=== PATIENT | male | born 1975 | race Caucasian/White ===

== ENCOUNTER 2016-07-07 11:43 | Emergency (ER) | payer SELFPAY ==
[~2016-07-07] VITALS: Ht 182.9 cm; Wt 71.8 kg
[~2016-07-07 11:43] MED LIST: CIPR500T4 PO; DICY1TAB26 PO; HYDR-3535 PO; METR-1 PO; ZOFR4TAB3 PO
[2016-07-07 12:04] VITALS: BP 114/64; PULSE 66; RESP 16; TEMP 98.4; O2SAT 94
[2016-07-07] MEDS ORDERED: PRED20 PO (12:40)
[2016-07-07] MEDS ORDERED: BENZ100 PO (12:40)
[2016-07-07] MEDS ORDERED: VENTAER INH (12:40)
--- NOTE | 2016-07-07 12:41 | PD ---
HPI Chief Complaint: Cold / Flu Symptoms Time Seen by Provider: 12:40 Travel History International Travel<30 days: No Contact w/Intl Traveler<30days: No Traveled to known affect area: No History of Present Illness HPI 41-year-old male presents to the emergency department for evaluation of cough for 3 days. Patient states 3 days ago he developed a cough with nasal congestion and runny nose. States that he's had subjective fevers. States he has been taking [id number] Robitussin without improvement of symptoms. States that when he coughs he feels short of breath. Denies any wheezing, chest pain, lightheadedness, dizziness, nausea, vomiting. The patient does have a history of smoking cigarettes for approximately 20 years. Denies any history of pneumonia. No recent travel or sick contacts. No other complaints. PFSH Past Medical History Blood Disorders: Yes (HEP C) Cancer: No Cardiovascular Problems: No Cerebrovascular Accident: No Diminished Hearing: No Endocrine: No Gastrointestinal Disorders: No Genitourinary: No Musculoskeletal: No Neurologic: No Psychiatric: No Reproductive: No Respiratory: No Immunizations Current: Yes Tetanus Vaccination: < 5 Years Influenza Vaccination: No Past Surgical History Cardiac Surgery: No Ear Surgery: No Endocrine Surgery: No Gynecologic Surgery: No Oral Surgery: No Other Surgery: No Social History Alcohol Use: No (DENIES) Tobacco Use: Yes (1 PPD) Substance Use: Yes (INJECTS COCAINE X 10 YEARS, HX OF DILAUDID) Allergies-Medications (Allergen,Severity, Reaction): Coded Allergies: No Known Allergies (Verified , 07/07/16) Reported Meds & Prescriptions Reported Meds & Active Scripts Active Ventolin Hfa 18 GM Inh (Albuterol Sulfate) 90 Mcg/Act Aer 2 Puff INH Q4-6H PRN Tessalon Perles (Benzonatate) 100 Mg Cap 100 Mg PO TID PRN 10 Days Prednisone 20 Mg Tab 20 Mg PO BID 5 Days Review of Systems Except as stated in HPI: all other systems reviewed are Neg Physical Exam Narrative GENERAL: Well-nourished and well-developed pleasant male patient in no acute distress. SKIN: Warm and dry. HEAD: Normocephalic and atraumatic. EYES: No injection, drainage, or hyphema noted. PERRLA. EOMI. ENT: No nasal drainage noted. Oropharynx is clear and the TMs are normal with good landmarks. NECK: Supple and the trachea is midline. CARDIOVASCULAR: Regular rate and rhythm. RESPIRATORY: Breath sounds are equal bilaterally with no accessory muscle use, wheezing, rhonchi, or crackles. NEUROLOGICAL: Awake, alert, and oriented. Normal speech and gait. Cranial nerves are grossly intact. Data Data Last Documented VS Vital Signs Date Time Temp Pulse Resp B/P Pulse Ox O2 Delivery O2 Flow Rate FiO2 07/07/16 12:14 94 Room Air 07/07/16 12:04 98.4 66 16 114/64 [facility] Medical Decision Making Medical Screen Exam Complete: Yes Emergency Medical Condition: Yes Differential Diagnosis Acute bronchitis versus URI versus viral illness versus influenza Narrative Course 41-year-old male presents to the emergency department for evaluation of cough, nasal congestion of subjective fever for 3 days. Patient is afebrile, vital signs are stable. Physical examination is essentially unremarkable. The patient has acute bronchitis. This is likely viral in etiology and the duration has only been 3 days, I don't feel that he requires any antibiotic therapy at this time. We'll treat the patient with steroids, albuterol inhaler and Tessalon Perles. Discussed supportive care and when to return to the emergency department. Counseled smoking cessation. Patient verbalizes understanding and agreement with treatment plan. Diagnosis Primary Impression: Acute bronchitis Qualified Code: J20.9 - Acute bronchitis, unspecified organism Referrals: Primary Care Physician Patient Instructions: Acute Bronchitis (ED), General Instructions Additional Instructions: Stop smoking. Take medications as prescribed. Follow-up with your Primary Care Physician. Return to the ED for any acute worsening of symptoms. Med/Other Pt SpecificInfo: Prescription(s) given Scripts Albuterol 18 GM Inh (Ventolin Hfa 18 GM Inh)90 Mcg/Act Aer2 Puff INH Q4-6H PRN ( SHORTNESS OF BREATH) #1 INHALER Ref 0 Prov:Jeffrey Wiggins MD 07/07/16 Benzonatate (Tessalon Perles)100 Mg [id number] Mg PO TID PRN (COUGH) 10 Days Ref 0 Prov:Jeffrey Wiggins MD 07/07/16 Prednisone 20 Mg Tab20 Mg PO BID 5 Days Ref 0 Prov:Jeffrey Wiggins MD 07/07/16 Disposition: 01 DISCHARGE HOME Condition: Stable Karma Arreaga Jul 07, 2016 12:41
== END 2016-07-07 12:52 | disposition home or self-care (01) ==
LOC: PHEFT 11:43
DX: J20.9 Acute bronchitis, unspecified (principal); R09.81 Nasal congestion; F17.200 Nicotine dependence, unspecified, uncomplicated; Z86.19 Personal history of other infectious and parasitic diseases
CPT/HCPCS: 99283

== ENCOUNTER 2017-02-26 14:44 | Emergency (ER) | payer SELFPAY ==
[~2017-02-26] VITALS: Ht 180.3 cm; Wt 71.0 kg
[~2017-02-26 14:44] MED LIST changes: +BENZ100 PO; -CIPR500T4 PO; -DICY1TAB26 PO; -HYDR-3535 PO; -METR-1 PO; +PRED20 PO; +VENTAER INH; -ZOFR4TAB3 PO
[2017-02-26 14:48] VITALS: BP 112/61; PULSE 76; RESP 16; TEMP 98.7; O2SAT 97
[2017-02-26 15:56] LABS: AUTOMATED NEUTROPHIL # 4.8 TH/MM3 (1.8-7.7); BASOPHIL % 0.6 % (0.0-2.0); EOSINOPHIL # 0.4 TH/MM3 (0-0.4); HEMATOCRIT 35.6 % (39.0-51.0); HEMO FLAGS DIFF FINAL; LYMPH % 18.8 % (9.0-44.0); LYMPHOCYTE # 1.3 TH/MM3 (1.0-4.8); MEAN CELL VOLUME 86.4 FL (80.0-100.0); MEAN CORPUSCULAR HEMOGLOBIN 28.9 PG (27.0-34.0); MEAN CORPUSCULAR HGB CONC 33.4 % (32.0-36.0); NEUT % 68.6 % (16.0-70.0); PLATELET COUNT 258 TH/MM3 (150-450); RED BLOOD COUNT 4.12 MIL/MM3 (4.50-5.90); RED CELL DISTRIBUTION WIDTH 13.6 % (11.6-17.2)
[2017-02-26 16:07] LABS: CHLORIDE 101 MEQ/L (98-107); POTASSIUM 3.7 MEQ/L (3.5-5.1); SODIUM (NA) 133 MEQ/L (136-145)
[2017-02-26 16:11] LABS: ANION GAP 5 MEQ/L (5-15); APTT (PATIENT) 33.1 SEC (24.3-30.1); BICARBONATE 26.6 MEQ/L (21.0-32.0); BLOOD UREA NITROGEN 15 MG/DL (7-18); PROTHROMBIN TIME - PATIENT 11.3 SEC (9.8-11.6)
[2017-02-26 16:14] LABS: ALT (GPT) 28 U/L (12-78); AST (GOT) 18 U/L (15-37); GLOMERULAR FILTRATION RATE 124 ML/MIN (>89)
--- NOTE | 2017-02-26 16:15 | RADRPT ---
EXAM DATE/TIME: 02/26/2017 15:52 [facility] COMPARISON: No previous studies available for comparison. INDICATIONS : No known injury. Swelling in Rt elbow this morning. MEDICAL HISTORY : Hepatitis C. SURGICAL HISTORY : None. ENCOUNTER: Initial ACUITY: 1 day PAIN SCORE: 7/10 LOCATION: Right Elbow FINDINGS: Multiple view examination of the right elbow demonstrates soft tissue swelling without joint effusion , or fracture. The osseous structures are in normal alignment. Bony mineralization is normal. CONCLUSION: Soft tissue swelling without fracture.. Harolod Brown MD on February 26, 2017 at 16:13 Board Certified Radiologist. This report was verified electronically.
[2017-02-26 16:16] LABS: TOTAL BILIRUBIN ADULT 0.3 MG/DL (0.2-1.0)
[2017-02-26 16:17] LABS: ALKALINE PHOSPHATASE 87 U/L (45-117)
--- NOTE | 2017-02-26 16:43 | PD ---
HPI . Right elbow pain and swelling Chief Complaint: Skin Problem Time Seen by Provider: 15:25 Travel History International Travel<30 days: No Contact w/Intl Traveler<30days: No Traveled to known affect area: No History of Present Illness HPI 41-year-old male patient presents emergency department for evaluation of right elbow pain and swelling. Patient states the onset was 2 days ago. Patient denies any fever, chest pain, shortness breath, malaise, dysuria, chills or lightheadedness. Patient denies any major medical history however patient is an IV drug user. Patient states he normally uses his left arm for injection however he has used his right arm in the past. Patient has slightly limited range of motion in his right elbow mostly due to the swelling. The right elbow is mildly erythematous, moderately swollen and has increased warmth. PFSH Past Medical History Blood Disorders: Yes (HEP C) Cancer: No Cardiovascular Problems: No Cerebrovascular Accident: No Diminished Hearing: No Endocrine: No Gastrointestinal Disorders: No Genitourinary: No Musculoskeletal: No Neurologic: No Psychiatric: No Reproductive: No Respiratory: No Immunizations Current: Yes Tetanus Vaccination: < 5 Years Influenza Vaccination: No Past Surgical History Cardiac Surgery: No Ear Surgery: No Endocrine Surgery: No Gynecologic Surgery: No Oral Surgery: No Other Surgery: No Social History Alcohol Use: No Tobacco Use: Yes (1 PPD) Substance Use: Yes (IV Dilaudid) Allergies-Medications (Allergen,Severity, Reaction): Coded Allergies: No Known Allergies (Verified , 02/26/17) Reported Meds & Prescriptions Reported Meds & Active Scripts Active No Active Prescriptions or Reported Medications Review of Systems Except as stated in HPI: all other systems reviewed are Neg Musculoskeletal: Positive: Edema (right elbow), Pain (right elbow) Physical Exam Narrative GENERAL: Well-nourished, well-developed 41-year-old male patient. In no acute distress. Nontoxic-appearing. SKIN: Focused skin assessment warm/dry. Mild erythema from right proximal forearm over the elbow. HEAD: Normocephalic. Atraumatic EYES: No scleral icterus. No injection or drainage. NECK: Supple, trachea midline. No JVD or lymphadenopathy. CARDIOVASCULAR: Regular rate and rhythm without murmurs, gallops, or rubs. RESPIRATORY: Breath sounds equal bilaterally. No accessory muscle use. GASTROINTESTINAL: Abdomen soft, non-tender, nondistended. MUSCULOSKELETAL: Erythema, swelling and increased warmth from the proximal forearm over the elbow. There is no signs of an effusion. I do not suspect a joint to be involved. Slight decreased range of motion mostly due to the swelling in the right elbow. BACK: Nontender without obvious deformity. No CVA tenderness. Data Data Last Documented VS Vital Signs Date Time Temp Pulse Resp B/P (MAP) Pulse Ox O2 Delivery O2 Flow Rate FiO2 02/26/17 14:48 98.7 76 16 112/61 (78) 97 Orders Orders Complete Blood Count With Diff (02/26/17 15:32) Comprehensive Metabolic Panel (02/26/17 15:32) Prothrombin Time / Inr (Pt) (02/26/17 15:32) Act Partial Throm Time (Ptt) (02/26/17 15:32) Lactic Acid Sepsis Protocol (02/26/17 15:32) Blood Culture (02/26/17 15:32) Elbow, Complete (4 Vws) (02/26/17 15:32) Iv Access Insert/Monitor (02/26/17 15:32) Labs Laboratory Tests Test 02/26/17 15:45 White Blood Count 7.0 TH/MM3 Red Blood Count 4.12 MIL/MM3 Hemoglobin 11.9 GM/DL Hematocrit 35.6 % Mean Corpuscular Volume 86.4 FL Mean Corpuscular Hemoglobin 28.9 PG Mean Corpuscular Hemoglobin Concent 33.4 % Red Cell Distribution Width 13.6 % Platelet Count 258 TH/MM3 Mean Platelet Volume 7.6 FL Neutrophils (%) (Auto) 68.6 % Lymphocytes (%) (Auto) 18.8 % Monocytes (%) (Auto) 7.0 % Eosinophils (%) (Auto) 5.0 % Basophils (%) (Auto) 0.6 % Neutrophils # (Auto) 4.8 TH/MM3 Lymphocytes # (Auto) 1.3 TH/MM3 Monocytes # (Auto) 0.5 TH/MM3 Eosinophils # (Auto) 0.4 TH/MM3 Basophils # (Auto) 0.0 TH/MM3 CBC Comment DIFF FINAL Differential Comment Prothrombin Time 11.3 SEC Prothromb Time International Ratio 1.0 RATIO Activated Partial Thromboplast Time 33.1 SEC Blood Urea Nitrogen 15 MG/DL Creatinine 0.71 MG/DL Random Glucose 121 MG/DL Total Protein 7.0 GM/DL Albumin 3.0 GM/DL Calcium Level 8.3 MG/DL Alkaline Phosphatase 87 U/L Aspartate Amino Transf (AST/SGOT) 18 U/L Alanine Aminotransferase (ALT/SGPT) 28 U/L Total Bilirubin 0.3 MG/DL Sodium Level 133 MEQ/L Potassium Level 3.7 MEQ/L Chloride Level 101 MEQ/L Carbon Dioxide Level 26.6 MEQ/L Anion Gap 5 MEQ/L Estimat Glomerular Filtration Rate 124 ML/MIN Lactic Acid Level 1.5 mmol/L MDM Medical Decision Making Medical Screen Exam Complete: Yes Emergency Medical Condition: Yes Interpretation(s) Afebrile, no tachycardia Differential Diagnosis Differential diagnoses include but are not limited to septic arthritis, cellulitis, bursitis, abscess Narrative Course 41-year-old male patient presents emergency department for evaluation of 2 day history of right proximal forearm over the elbow erythema, swelling and pain. Patient denies any fevers, chills, malaise. She denies any chest pain, shortness breath. Patient denies any injury or trauma occurring to the right arm. Patient is an IV drug user however normally uses his left arm. He says that he has used his right arm in the past but has been a while. Due to the patient's high risk for infection from his lifestyle choices there was a complete workup with blood work to ensure no signs of infection systemically. CBC, CMP, PT/INR, lactic acid and x-ray of the right elbow ordered and pending. There was no leukocytosis noted on the CBC, the lactic acid was within normal limits. There are no signs or symptoms of systemic infection at this time. The x-ray of the right elbow shows no fracture or effusion. Based on patient's symptoms, clinical presentation, lab results, radiological results, vital sign review and physical exam it is not necessary to admit the patient to the hospital or keep the patient in the emergency department for further evaluation. Patient will be treated for nonpurulent cellulitis with Keflex and Bactrim and discharged home with instructions to return the emergency Department with any signs or symptoms of worsening infection.. Laboratory Tests Test 02/26/17 15:45 White Blood Count 7.0 TH/MM3 Red Blood Count 4.12 MIL/MM3 Hemoglobin 11.9 GM/DL Hematocrit 35.6 % Mean Corpuscular Volume 86.4 FL Mean Corpuscular Hemoglobin 28.9 PG Mean Corpuscular Hemoglobin Concent 33.4 % Red Cell Distribution Width 13.6 % Platelet Count 258 TH/MM3 Mean Platelet Volume 7.6 FL Neutrophils (%) (Auto) 68.6 % Lymphocytes (%) (Auto) 18.8 % Monocytes (%) (Auto) 7.0 % Eosinophils (%) (Auto) 5.0 % Basophils (%) (Auto) 0.6 % Neutrophils # (Auto) 4.8 TH/MM3 Lymphocytes # (Auto) 1.3 TH/MM3 Monocytes # (Auto) 0.5 TH/MM3 Eosinophils # (Auto) 0.4 TH/MM3 Basophils # (Auto) 0.0 TH/MM3 CBC Comment DIFF FINAL Differential Comment Prothrombin Time 11.3 SEC Prothromb Time International Ratio 1.0 RATIO Activated Partial Thromboplast Time 33.1 SEC Blood Urea Nitrogen 15 MG/DL Creatinine 0.71 MG/DL Random Glucose 121 MG/DL Total Protein 7.0 GM/DL Albumin 3.0 GM/DL Calcium Level 8.3 MG/DL Alkaline Phosphatase 87 U/L Aspartate Amino Transf (AST/SGOT) 18 U/L Alanine Aminotransferase (ALT/SGPT) 28 U/L Total Bilirubin 0.3 MG/DL Sodium Level 133 MEQ/L Potassium Level 3.7 MEQ/L Chloride Level 101 MEQ/L Carbon Dioxide Level 26.6 MEQ/L Anion Gap 5 MEQ/L Estimat Glomerular Filtration Rate 124 ML/MIN Lactic Acid Level 1.5 mmol/L Diagnosis Primary Impression: Cellulitis of right arm Referrals: Primary Care Physician Patient Instructions: Cellulitis (ED), General Instructions Additional Instructions: Please return to emergency department with any signs or symptoms of increasing infection such as increased redness, swelling, warmth and fevers. Follow up with your primary care provider. Discontinue any IV drug use. Take antibiotics as prescribed. Med/Other Pt SpecificInfo: Prescription(s) given Scripts Sulfamethoxazole-Trimethoprim (Bactrim DS) 800-160 Mg Tab 1 TAB PO BID for Infection for 10 Days, #20 TAB 0 Refills Prov: Elizabeth Barajas 02/26/17 Cephalexin (Cephalexin) 500 Mg Tab 500 MG PO Q6H for Infection for 10 Days, #40 TAB 0 Refills Prov: Elizabeth Barajas 10/5/17 Disposition: 01 DISCHARGE HOME Condition: Stable Elizabeth Barajas Feb 26, 2017 16:43
[2017-02-26] MEDS ORDERED: CEPH500T PO (16:47)
[2017-02-26] MEDS ORDERED: BACT800T5 PO (16:47)
== END 2017-02-26 16:59 | disposition home or self-care (01) ==
LOC: PHEFT 14:44
DX: L03.113 Cellulitis of right upper limb (principal); B19.20 Unspecified viral hepatitis C without hepatic coma
CPT/HCPCS: 73080; 80053; 83605; 85025; 85610; 85730; 87040; 99284

== ENCOUNTER 2017-03-06 14:41 | Emergency (ER) | payer SELFPAY ==
[~2017-03-06] VITALS: Ht 172.7 cm; Wt 70.0 kg
[~2017-03-06 14:41] MED LIST changes: +BACT800T5 PO; -BENZ100 PO; +CEPH500T PO; -PRED20 PO; -VENTAER INH
[2017-03-06 15:00] VITALS: BP 139/66; PULSE 108; RESP 16; TEMP 102.4; O2SAT 99
[2017-03-06] MEDS ORDERED: SODIUM CHLOR 0.9% 1000 ML INJ 1,000 ML IV ONE ×4 (15:22→20:00)
[2017-03-06] MEDS ORDERED: ACETAMINOPHEN 325 MG TAB PO ONE (15:30)
[2017-03-06] MEDS ORDERED: MIDAZOLAM HCL 2 MG/2 ML VIAL IV PUSH ONE (15:30)
[2017-03-06] MEDS ORDERED: ACETAMINOPHEN 650 MG SUPP RECTAL ONE (15:30)
[2017-03-06] MEDS ORDERED: ONDANSETRON HCL 4 MG/2 ML VIAL IV PUSH ONE (15:30)
[2017-03-06] MEDS ORDERED: SODIUM CHLORIDE 0.9% FLUSH 10 ML FLUSH IVF PRN (15:30)
[2017-03-06] MEDS ORDERED: LORazepam 2 MG/ML VIAL IV PUSH ONE (15:30)
--- NOTE | 2017-03-06 15:38 | PD ---
HPI Chief Complaint: substance abuse Time Seen by Provider: 15:22 Travel History International Travel<30 days: No Contact w/Intl Traveler<30days: No History of Present Illness HPI Patient comes in by EMS after being found in a residential driveway. The owners of the home called EMS on the patient. Patient reportedly initially to be cooperative and admitted to injecting IV cocaine to the EMS. Patient reportedly started to get agitated and combative and had to be restrained by EMS. Patient will not tell me what's drugs injected but states IV cocaine is hard to come by. Patient denies any pain anywhere. Patient is obviously under the influence of something and is unable to sit still, reports he is very thirsty, states he is becoming very agitated, and is rambling about various topics. Patient is currently not a good historian thus limiting H&P. PFSH Past Medical History Blood Disorders: Yes (HEP C) Cancer: No Cardiovascular Problems: No Cerebrovascular Accident: No Diminished Hearing: No Endocrine: No Gastrointestinal Disorders: No Genitourinary: No Musculoskeletal: No Neurologic: No Psychiatric: No Reproductive: No Respiratory: No Immunizations Current: Yes Past Surgical History Cardiac Surgery: No Ear Surgery: No Endocrine Surgery: No Gynecologic Surgery: No Oral Surgery: No Other Surgery: No Social History Alcohol Use: No Tobacco Use: Yes (1 PPD) Substance Use: Yes (IV Dilaudid) Allergies-Medications (Allergen,Severity, Reaction): Coded Allergies: No Known Allergies (Verified , 02/26/17) Reported Meds & Prescriptions Reported Meds & Active Scripts Active Bactrim DS (Sulfamethoxazole-Trimethoprim) 800-160 Mg Tab 1 Tab PO BID 10 Days Cephalexin 500 Mg Tab 500 Mg PO Q6H 10 Days Review of Systems ROS Limitations: Clinical Condition Except as stated in HPI: all other systems reviewed are Neg Physical Exam Exam Limitations: Clinical Condition Narrative GENERAL: Well-developed, well nourished, in no acute distress, and non-ill appearing. SKIN: Focused skin assessment warm and dry. HEAD: Atraumatic. Normocephalic. EYES: Pupils equal and round. EOMI. No scleral icterus. No injection or drainage. ENT: No nasal bleeding or discharge. Mucous membranes pink and moist. NECK: Trachea midline. Supple. No nuclear rigidity. CARDIOVASCULAR: Regular rate and rhythm. No murmur appreciated. RESPIRATORY: No accessory muscle use. No respiratory distress. Clear to auscultation. Breath sounds equal bilaterally. GASTROINTESTINAL: Abdomen soft, non-tender, nondistended, and no guarding. Hepatic and splenic margins not palpable. Normal bowel sounds 4. No pulsatile mass. MUSCULOSKELETAL: No obvious deformities. No clubbing. No cyanosis. No edema. Full range of motion. NEUROLOGICAL: Awake and alert. No obvious cranial nerve deficits. Motor grossly within normal limits. Rambling speech. PSYCHIATRIC: Inappropriate mood and affect. Data Data Last Documented VS Vital Signs Date Time Temp Pulse Resp B/P (MAP) Pulse Ox O2 Delivery O2 Flow Rate FiO2 03/07/17 01:25 03/07/17 01:13 98.0 03/06/17 23:00 54 19 100 Room Air Orders Orders Basic Metabolic Panel (Bmp) (03/06/17:) Complete Blood Count With Diff (03/06/17:) Iv Access Insert/Monitor (03/06/17:) Cath For Specimen (03/06/17:) Ecg Monitoring (03/06/17:) Oximetry (03/06/17:) Lorazepam Inj (Ativan Inj) (03/06/17 15:30) Ondansetron Inj (Zofran Inj) (03/06/17 15:30) Sodium Chloride 0.9% Flush (Ns Flush) (03/06/17:30) Sodium Chlor 0.9% 1000 Ml Inj (Ns 1000 M (03/06/17 15:22) Drug Screen, Random Urine (03/06/17:) Alcohol (Ethanol) (03/06/17:) Creatine Kinase (Cpk) (03/06/17 15:22) Midazolam Inj (Versed Inj) (03/06/17 15:30) Acetaminophen Supp (Tylenol Supp) (03/06/17 15:30) Sodium Chlor 0.9% 1000 Ml Inj (Ns 1000 M (03/06/17 15:30) Acetaminophen (Tylenol) (03/06/17 15:30) CKMB (03/06/17 15:45) CKMB% (03/06/17 15:45) Sodium Chlor 0.9% 1000 Ml Inj (Ns 1000 M (03/06/17 17:30) Creatine Kinase (Cpk) (03/06/17 17:55) Haloperidol Inj (Haldol Inj) (03/06/17 18:15) CKMB (03/06/17 18:10) CKMB% (03/06/17 18:10) Sodium Chlor 0.9% 1000 Ml Inj (Ns 1000 M (03/06/17 20:00) Labs Laboratory Tests Test 03/06/17 15:45 03/06/17 17:20 03/06/17 18:10 White Blood Count 9.2 TH/MM3 Red Blood Count 4.21 MIL/MM3 Hemoglobin 12.4 GM/DL Hematocrit 36.2 % Mean Corpuscular Volume 85.9 FL Mean Corpuscular Hemoglobin 29.4 PG Mean Corpuscular Hemoglobin Concent 34.2 % Red Cell Distribution Width 13.9 % Platelet Count 361 TH/MM3 Mean Platelet Volume 7.6 FL Neutrophils (%) (Auto) 78.9 % Lymphocytes (%) (Auto) 12.6 % Monocytes (%) (Auto) 6.4 % Eosinophils (%) (Auto) 1.1 % Basophils (%) (Auto) 1.0 % Neutrophils # (Auto) 7.3 TH/MM3 Lymphocytes # (Auto) 1.2 TH/MM3 Monocytes # (Auto) 0.6 TH/MM3 Eosinophils # (Auto) 0.1 TH/MM3 Basophils # (Auto) 0.1 TH/MM3 CBC Comment DIFF FINAL Differential Comment Blood Urea Nitrogen 24 MG/DL Creatinine 1.06 MG/DL Random Glucose 82 MG/DL Calcium Level 8.9 MG/DL Sodium Level 137 MEQ/L Potassium Level 4.3 MEQ/L Chloride Level 106 MEQ/L Carbon Dioxide Level 23.0 MEQ/L Anion Gap 8 MEQ/L Estimat Glomerular Filtration Rate 78 ML/MIN Total Creatine Kinase 2585 U/L 1770 U/L Creatine Kinase MB 23.3 NG/ML 15.0 NG/ML Creatine Kinase MB % 0.9 % 0.8 % Ethyl Alcohol Level LESS THAN 3 MG/DL Urine Opiates Screen POS Urine Barbiturates Screen NEG Urine Amphetamines Screen POS Urine Benzodiazepines Screen POS Urine Cocaine Screen NEG Urine Cannabinoids Screen POS MDM Medical Decision Making Medical Screen Exam Complete: Yes Emergency Medical Condition: Yes Differential Diagnosis Substance abuse, renal insufficiency, electrolyte abnormality, rhabdo, other Narrative Course Patient was seen and examined. IV was established patient was placed on cardiac monitoring. Patient was given Versed and Ativan definitive acute agitation. Patient's BNP without prior to for his elevated temperature on arrival. patient was given 2 Liters of iv fluid. after having elevated cpk on his laboratory results a repeat cpk was checked and should be downtrending. patient was given additional 2 L of iv fluid. Patient will be monitored in the emergency department until clinically sober and able to ambulate on their own or until a sober responsible adult comes to pick them up. Patient may reevaluated at that time for any acute complaints. Discussed this patient with Dr. Craig, who is in agreement with plan of care and disposition. RN is aware of this. Diagnosis Primary Impression: Polysubstance abuse Additional Impression: Elevated CPK Referrals: [facility] Patient Instructions: General Instructions, Polysubstance Abuse (ED) Additional Instructions: Follow-up with your primary care physician in 3-4 days for reevaluation. Follow up [facility] for [facility] detox. Drink plenty of non- caffeinated and nonalcoholic fluids. Stop doing drugs. Return to the emergency department if symptoms get worse or for any emergent concerns. Disposition: 01 DISCHARGE HOME Condition: Stable Anam Cesar Mar 06, 2017 15:38
[2017-03-06 16:39] LABS: ANION GAP 8 MEQ/L (5-15); BLOOD UREA NITROGEN 24 MG/DL (7-18); CHLORIDE 106 MEQ/L (98-107); GLOMERULAR FILTRATION RATE 78 ML/MIN (>89); POTASSIUM 4.3 MEQ/L (3.5-5.1); SODIUM (NA) 137 MEQ/L (136-145)
[2017-03-06 16:48] LABS: ALCOHOL LESS THAN 3 MG/DL (0-5)
[2017-03-06 16:54] LABS: CREATINE KINASE 2585 U/L (39-308)
[2017-03-06 16:55] LABS: AUTOMATED NEUTROPHIL # 7.3 TH/MM3 (1.8-7.7); BASOPHIL # 0.1 TH/MM3 (0-0.2); EOSINOPHIL # 0.1 TH/MM3 (0-0.4); EOSINOPHIL % 1.1 % (0.0-4.0); HEMATOCRIT 36.2 % (39.0-51.0); HEMO FLAGS DIFF FINAL; LYMPH % 12.6 % (9.0-44.0); LYMPHOCYTE # 1.2 TH/MM3 (1.0-4.8); MEAN CELL VOLUME 85.9 FL (80.0-100.0); MEAN CORPUSCULAR HEMOGLOBIN 29.4 PG (27.0-34.0); MEAN CORPUSCULAR HGB CONC 34.2 % (32.0-36.0); MONO % 6.4 % (0.0-8.0); NEUT % 78.9 % (16.0-70.0); PLATELET COUNT 361 TH/MM3 (150-450); RED BLOOD COUNT 4.21 MIL/MM3 (4.50-5.90); RED CELL DISTRIBUTION WIDTH 13.9 % (11.6-17.2); WHITE BLOOD COUNT 9.2 TH/MM3 (4.0-11.0)
[2017-03-06 17:10] LABS: CKMB 23.3 NG/ML (0.5-3.6)
[2017-03-06 17:15] VITALS: BP 103/59; PULSE 70; RESP 16; O2SAT 100
[2017-03-06] MEDS ORDERED: HALOPERIDOL LACTATE 5 MG/ML AMP IV PUSH ONE (18:15)
[2017-03-06 18:45] VITALS: BP 102/58; PULSE 64; RESP 16; O2SAT 100
[2017-03-06 19:37] VITALS: BP 100/55; PULSE 58; RESP 17; O2SAT 100
[2017-03-06 19:38] VITALS: RESP 16; O2SAT 100
[2017-03-06 23:00] VITALS: BP 120/71; PULSE 54; RESP 19; O2SAT 100
[2017-03-07 01:04] VITALS: TEMP 98
--- NOTE | 2017-03-07 01:08 | PD ---
Physical Exam Narrative GENERAL: Well-nourished, well-developed patient. SKIN: Warm and dry. HEAD: Normocephalic and atraumatic. EYES: No injection or drainage. ENT: No nasal drainage noted. NECK: Supple, trachea midline. CARDIOVASCULAR: Regular rate and rhythm RESPIRATORY: no increased effort. No accessory muscle use. GASTROINTESTINAL: Abdomen soft, nondistended. NEUROLOGICAL: Awake and alert. Motor and sensory grossly within normal limits. Normal speech. steady gait Data Data Last Documented VS Vital Signs Date Time Temp Pulse Resp B/P (MAP) Pulse Ox O2 Delivery O2 Flow Rate FiO2 03/07/17 01:04 98.0 03/06/17 23:00 54 19 100 Room Air Orders Orders Basic Metabolic Panel (Bmp) (03/06/17 15:22) Complete Blood Count With Diff (03/06/17:) Iv Access Insert/Monitor (03/06/17:22) Cath For Specimen (03/06/17:) Ecg Monitoring (03/06/17:) Oximetry (03/06/17:) Lorazepam Inj (Ativan Inj) (03/06/17 15:30) Ondansetron Inj (Zofran Inj) (03/06/17 15:30) Sodium Chloride 0.9% Flush (Ns Flush) (03/06/17:30) Sodium Chlor 0.9% 1000 Ml Inj (Ns 1000 M (03/06/17 15:22) Drug Screen, Random Urine (03/06/17 15:22) Alcohol (Ethanol) (03/06/17:22) Creatine Kinase (Cpk) (03/06/17 15:22) Midazolam Inj (Versed Inj) (03/06/17 15:30) Acetaminophen Supp (Tylenol Supp) (03/06/17 15:30) Sodium Chlor 0.9% 1000 Ml Inj (Ns 1000 M (03/06/17 15:30) Acetaminophen (Tylenol) (03/06/17 15:30) CKMB (03/06/17 15:45) CKMB% (03/06/17 15:45) Sodium Chlor 0.9% 1000 Ml Inj (Ns 1000 M (03/06/17 17:30) Creatine Kinase (Cpk) (03/06/17 17:55) Haloperidol Inj (Haldol Inj) (03/06/17 18:15) CKMB (03/06/17 18:10) CKMB% (03/06/17 18:10) Sodium Chlor 0.9% 1000 Ml Inj (Ns 1000 M (03/06/17 20:00) Labs Laboratory Tests Test 03/06/17 15:45 03/06/17 17:20 03/06/17 18:10 White Blood Count 9.2 TH/MM3 Red Blood Count 4.21 MIL/MM3 Hemoglobin 12.4 GM/DL Hematocrit 36.2 % Mean Corpuscular Volume 85.9 FL Mean Corpuscular Hemoglobin 29.4 PG Mean Corpuscular Hemoglobin Concent 34.2 % Red Cell Distribution Width 13.9 % Platelet Count 361 TH/MM3 Mean Platelet Volume 7.6 FL Neutrophils (%) (Auto) 78.9 % Lymphocytes (%) (Auto) 12.6 % Monocytes (%) (Auto) 6.4 % Eosinophils (%) (Auto) 1.1 % Basophils (%) (Auto) 1.0 % Neutrophils # (Auto) 7.3 TH/MM3 Lymphocytes # (Auto) 1.2 TH/MM3 Monocytes # (Auto) 0.6 TH/MM3 Eosinophils # (Auto) 0.1 TH/MM3 Basophils # (Auto) 0.1 TH/MM3 CBC Comment DIFF FINAL Differential Comment Blood Urea Nitrogen 24 MG/DL Creatinine 1.06 MG/DL Random Glucose 82 MG/DL Calcium Level 8.9 MG/DL Sodium Level 137 MEQ/L Potassium Level 4.3 MEQ/L Chloride Level 106 MEQ/L Carbon Dioxide Level 23.0 MEQ/L Anion Gap 8 MEQ/L Estimat Glomerular Filtration Rate 78 ML/MIN Total Creatine Kinase 2585 U/L 1770 U/L Creatine Kinase MB 23.3 NG/ML 15.0 NG/ML Creatine Kinase MB % 0.9 % 0.8 % Ethyl Alcohol Level LESS THAN 3 MG/DL Urine Opiates Screen POS Urine Barbiturates Screen NEG Urine Amphetamines Screen POS Urine Benzodiazepines Screen POS Urine Cocaine Screen NEG Urine Cannabinoids Screen POS MDM Supervised Visit with [facility]: Yes Interpretation(s) CBC & BMP Diagram 03/06/17 15:45 Calcium Level 8.9 Narrative Course 1305 patient now awake alert and orientated, steady gait, girlfriend at bedside , patient notes injecting multiple drugs earlier today. On review of records he had 102.4 fever, I talked with patient about how he is at risk for sepsis, endocarditis, spinal abscess and severe infection given his IV drug abuse and my recommendation is for him to stay in the hospital for further workup and testing. He states he feels fine and doesn't want to stay. Girlfriend at bedside. Nurse at bedside. AMA: The risks of leaving against medical advice without further evaluation treatment were discussed with the patient. These risks include cardiac dysfunction, cardiac dysrhythmia, possible heart attack, possible stroke or . The patient indicated understanding of these risks and appeared to have the capacity to make this decision. Diagnosis Primary Impression: Polysubstance abuse Additional Impression: Elevated CPK Referrals: [facility] Patient Instructions: General Instructions, Polysubstance Abuse (ED) Additional Instruction: Follow-up with your primary care physician thursday for reevaluation. Follow up with [facility] for [facility] detox. Drink plenty of non-caffeinated and nonalcoholic fluids. Stop doing drugs. Return to the emergency department if symptoms get worse or for any emergent concerns. Disposition: 07 AGAINST MEDICAL ADVICE Condition: Stable Jen Alvarez MD Mar 07, 2017 01:08
[2017-03-07 01:13] VITALS: TEMP 98
== END 2017-03-07 01:33 | disposition left against medical advice (07) ==
LOC: NEPC 14:41
DX: F19.10 Other psychoactive substance abuse, uncomplicated (principal); B19.20 Unspecified viral hepatitis C without hepatic coma; F17.200 Nicotine dependence, unspecified, uncomplicated; R74.8 Abnormal levels of other serum enzymes
CPT/HCPCS: 80048; 80307; 82550; 82552; 85025; 96361; 96374; 96375; 99284; J1630; J2060; J2250; J2405; J7030; P9612

== ENCOUNTER 2017-04-22 14:13 | Emergency (ER) | payer SELFPAY ==
[~2017-04-22] VITALS: Ht 182.9 cm; Wt 72.7 kg
[2017-04-22 14:14] VITALS: BP 134/64; PULSE 98; RESP 20; TEMP 100.8; O2SAT 96
--- NOTE | 2017-04-22 14:43 | PD ---
HPI Chief Complaint: Edema Time Seen by Provider: 14:43 Travel History International Travel<30 days: No Contact w/Intl Traveler<30days: No Traveled to known affect area: No History of Present Illness HPI 41-year-old male with history of IV drug abuse presents to [facility] department for evaluation of a swollen and painful anterior left hand worsening over the last 3 days. Patient states that he injected IV drugs and missed. The hand has become increasingly swollen. Denies fever or chills. Dates that he just needs antibiotics. Denies any alterations in sensation or limitations range motion. Patient has no other symptoms reported. PFSH Past Medical History Blood Disorders: Yes (HEP C) Cancer: No Cardiovascular Problems: No Cerebrovascular Accident: No Diminished Hearing: No Endocrine: No Gastrointestinal Disorders: No Genitourinary: No Musculoskeletal: No Neurologic: No Psychiatric: No Reproductive: No Respiratory: No Immunizations Current: Yes Past Surgical History Cardiac Surgery: No Ear Surgery: No Endocrine Surgery: No Gynecologic Surgery: No Oral Surgery: No Other Surgery: No Social History Alcohol Use: No Tobacco Use: Yes (1 PPD) Substance Use: Yes (IV Dilaudid) Allergies-Medications (Allergen,Severity, Reaction): Coded Allergies: No Known Allergies (Verified , 02/26/17) Reported Meds & Prescriptions Reported Meds & Active Scripts Active Bactrim DS (Sulfamethoxazole-Trimethoprim) 800-160 Mg Tab 1 Tab PO BID 10 Days Cephalexin 500 Mg Tab 500 Mg PO Q6H 10 Days Review of Systems Except as stated in HPI: all other systems reviewed are Neg Physical Exam Narrative GENERAL: Well-nourished male patient, no acute distress SKIN: Warm and dry. HEAD: Atraumatic. Normocephalic. EYES: Pupils equal and round. No scleral icterus. No injection or drainage. ENT: No nasal bleeding or discharge. Mucous membranes pink and moist. NECK: Trachea midline. No JVD. CARDIOVASCULAR: Elevated rate RESPIRATORY: No accessory muscle use. GASTROINTESTINAL: Abdomen nondistended. MUSCULOSKELETAL: . No obvious deformities. Edema of the entire left hand with induration proximal to the anterior medial left wrist. Patient can flex and extend the digits but this is limited due to edema. Cap refill within normal limits. NEUROLOGICAL: Awake and alert. No obvious cranial nerve deficits. Motor grossly within normal limits. Five out of 5 muscle strength in the arms and legs. Normal speech. Data Data Last Documented VS Vital Signs Date Time Temp Pulse Resp B/P (MAP) Pulse Ox O2 Delivery O2 Flow Rate FiO2 04/22/17 14:14 100.8 98 20 134/64 (87) 96 Room Air Orders Orders Complete Blood Count With Diff (04/22/17 14:30) Basic Metabolic Panel (Bmp) (04/22/17 14:30) Blood Culture (04/22/17 14:30) Lactic Acid Sepsis Protocol (04/22/17 14:30) MDM Medical Decision Making Medical Screen Exam Complete: Yes Emergency Medical Condition: Yes Medical Record Reviewed: Yes Differential Diagnosis Sepsis versus cellulitis versus abscess Narrative Course 41-year-old male presents to the emergency department for evaluation of a swollen left upper extremity echo. IV drug abuse. Workup was initiated in triage. Patient is tachycardic as well as febrile. Sepsis protocol was initiated. AMA: The risks of leaving against medical advice without further evaluation treatment were discussed with the patient. These risks include cardiac dysfunction, cardiac dysrhythmia, possible heart attack, possible stroke or . The patient indicated understanding of these risks and appeared to have the capacity to make this decision. Diagnosis Primary Impression: Cellulitis of right arm Disposition: 07 AGAINST MEDICAL ADVICE Condition: Stable MaxJacqueline paz SAIMA Apr 22, 2017 14:43
== END 2017-04-22 14:43 | disposition left against medical advice (07) ==
LOC: NED 14:13
DX: L03.113 Cellulitis of right upper limb (principal); R00.0 Tachycardia, unspecified; F31.9 Bipolar disorder, unspecified; F17.200 Nicotine dependence, unspecified, uncomplicated; Z86.19 Personal history of other infectious and parasitic diseases
CPT/HCPCS: 99283

== ENCOUNTER 2017-04-23 09:43 | Inpatient (IN) | payer SELFPAY ==
[~2017-04-23] VITALS: Ht 182.9 cm; Wt 69.8 kg
[2017-04-23 09:50] VITALS: BP 117/58; PULSE 78; RESP 16; TEMP 98.1; O2SAT 96
[2017-04-23 10:02] VITALS: BP 122/56; PULSE 71; RESP 18; TEMP 97.7; O2SAT 95
--- NOTE | 2017-04-23 10:37 | PD ---
HPI Chief Complaint: Skin Problem Time Seen by Provider: 10:37 Travel History International Travel<30 days: No Contact w/Intl Traveler<30days: No Traveled to known affect area: No History of Present Illness HPI 41-year-old male came to the emergency room with history of left arm swelling after her IV drug abuse. Patient says that he injects Dilaudid. Patient is afebrile and vital signs otherwise stable. However he says he's noticed that swelling since yesterday and is significantly larger than the other arm. Patient is not very forthcoming with the history. He prefers to sleep but does wake up and answer questions in monosyllables when I ask him. He looks disheveled and quite possibly homeless. [facility] Past Medical History Narrative Medical List of her past medical, surgical, social and family history is reviewed from the nursing note. Blood Disorders: Yes (HEP C) Cancer: No Cardiovascular Problems: No Cerebrovascular Accident: No Diminished Hearing: No Endocrine: No Gastrointestinal Disorders: No Genitourinary: No Hepatitis: Yes (hep C ) Musculoskeletal: No Neurologic: No Psychiatric: No Reproductive: No Respiratory: No Immunizations Current: Yes Past Surgical History Cardiac Surgery: No Ear Surgery: No Endocrine Surgery: No Gynecologic Surgery: No Oral Surgery: No Other Surgery: No Social History Alcohol Use: No Tobacco Use: Yes (1 PPD) Substance Use: Yes (IV Dilaudid, meth and marijuana ) Allergies-Medications (Allergen,Severity, Reaction): Coded Allergies: No Known Allergies (Verified Allergy, Unknown, 04/23/17) Comments No known drug allergies Reported Meds & Prescriptions Reported Meds & Active Scripts Active Bactrim DS (Sulfamethoxazole-Trimethoprim) 800-160 Mg Tab 1 Tab PO BID 10 Days Cephalexin 500 Mg Tab 500 Mg PO Q6H 10 Days Narrative Medication List of his home medications reviewed from the nursing note. Review of Systems Except as stated in HPI: all other systems reviewed are Neg Physical Exam Narrative GENERAL: Somnolent but opens his eyes and responds to commands SKIN: Focused skin assessment warm/dry. Left elbow and the forearm distally up to the fingertips is swollen, erythematous, warm to touch and a fluctuant 4 x 4 centimeter blister looking area on the ulnar aspect of the wrist HEAD: Atraumatic. Normocephalic. EYES: Pupils equal and round. No scleral icterus. No injection or drainage. ENT: No nasal bleeding or discharge. Mucous membranes pink and moist. NECK: Trachea midline. No JVD. CARDIOVASCULAR: Regular rate and rhythm. No murmur appreciated. RESPIRATORY: No accessory muscle use. Clear to auscultation. Breath sounds equal bilaterally. GASTROINTESTINAL: Abdomen soft, non-tender, nondistended. Hepatic and splenic margins not palpable. MUSCULOSKELETAL: No obvious deformities. No clubbing. No cyanosis. No edema. NEUROLOGICAL: Awake and alert. No obvious cranial nerve deficits. Motor grossly within normal limits. Normal speech. PSYCHIATRIC: Appropriate mood and affect; insight and judgment normal. Data Data Last Documented VS Vital Signs Date Time Temp Pulse Resp B/P (MAP) Pulse Ox O2 Delivery O2 Flow Rate FiO2 04/23/17 10:02 97.7 71 18 122/56 (78) 95 Room Air Orders Orders Sepsis Workup Initiated (04/23/17 10:08) Complete Blood Count With Diff (04/23/17 10:10) Comprehensive Metabolic Panel (04/23/17 10:10) Lactic Acid Sepsis Protocol (04/23/17 10:10) Blood Culture (04/23/17 10:10) Ct Forearm W Iv Contrast (04/23/17 ) Piperacil-Tazo 4.5 Gm Premix (Zosyn 4.5 (04/23/17 10:45) Vancomycin Inj (Vancomycin Inj) (04/23/17 10:45) Sodium Chlor 0.9% 1000 Ml Inj (Ns 1000 M (04/23/17 10:45) Sodium Chlor 0.9% 1000 Ml Inj (Ns 1000 M (04/23/17 10:45) Iohexol 350 Inj (Omnipaque 350 Inj) (04/23/17 11:46) Admit Order (Ed Use Only) (04/23/17 13:33) Labs Laboratory Tests Test 04/23/17 10:20 White Blood Count 7.9 TH/MM3 Red Blood Count 4.15 MIL/MM3 Hemoglobin 12.1 GM/DL Hematocrit 35.3 % Mean Corpuscular Volume 85.2 FL Mean Corpuscular Hemoglobin 29.2 PG Mean Corpuscular Hemoglobin Concent 34.3 % Red Cell Distribution Width 14.1 % Platelet Count 294 TH/MM3 Mean Platelet Volume 7.1 FL Neutrophils (%) (Auto) 81.2 % Lymphocytes (%) (Auto) 11.5 % Monocytes (%) (Auto) 5.6 % Eosinophils (%) (Auto) 1.2 % Basophils (%) (Auto) 0.5 % Neutrophils # (Auto) 6.4 TH/MM3 Lymphocytes # (Auto) 0.9 TH/MM3 Monocytes # (Auto) 0.4 TH/MM3 Eosinophils # (Auto) 0.1 TH/MM3 Basophils # (Auto) 0.0 TH/MM3 CBC Comment DIFF FINAL Differential Comment Blood Urea Nitrogen 22 MG/DL Creatinine 0.88 MG/DL Random Glucose 156 MG/DL Total Protein 8.3 GM/DL Albumin 3.4 GM/DL Calcium Level 8.9 MG/DL Alkaline Phosphatase 87 U/L Aspartate Amino Transf (AST/SGOT) 18 U/L Alanine Aminotransferase (ALT/SGPT) 23 U/L Total Bilirubin 0.7 MG/DL Sodium Level 133 MEQ/L Potassium Level 3.7 MEQ/L Chloride Level 98 MEQ/L Carbon Dioxide Level 28.4 MEQ/L Anion Gap 7 MEQ/L Estimat Glomerular Filtration Rate 96 ML/MIN Lactic Acid Level 1.3 mmol/L [facility] Medical Decision Making Medical Screen Exam Complete: Yes Emergency Medical Condition: Yes Medical Record Reviewed: Yes Differential Diagnosis Abscess, necrotizing fasciitis, cellulitis Narrative Course 1:54 PM blood test results of back and do not show sepsis. There was a CT scan of the upper extremity done which shows a fluid-filled area on the wrist area with soft tissue swelling. Patient was given IV Zosyn and vancomycin with IV fluid. I intend to admit him given the clinical severity of the infection. Awaiting for the hospitalist to call back. Procedures EKG Prior to Arrival: No Diagnosis Primary Impression: IV drug abuse Additional Impression: Cellulitis of forearm, left Admitting Information Admitting Physician Requests: it Raheem Guevara MD Apr 23, 2017 10:37
[2017-04-23] MEDS ORDERED: SODIUM CHLOR 0.9% 1000 ML INJ 1,000 ML IV ONE ×2 (10:45)
[2017-04-23] MEDS ORDERED: PIPERACIL-TAZO 4.5 GM PREMIX 100 ML IV ONE (10:45)
[2017-04-23] MEDS ORDERED: VANCOMYCIN INJ 1,000 MG in SODIUM CHLOR 0.9% 250 ML INJ 250 ML IV ONE (10:45)
[2017-04-23 10:54] LABS: AUTOMATED NEUTROPHIL # 6.4 TH/MM3 (1.8-7.7); BASOPHIL % 0.5 % (0.0-2.0); EOSINOPHIL # 0.1 TH/MM3 (0-0.4); EOSINOPHIL % 1.2 % (0.0-4.0); HEMATOCRIT 35.3 % (39.0-51.0); HEMO FLAGS DIFF FINAL; LYMPH % 11.5 % (9.0-44.0); LYMPHOCYTE # 0.9 TH/MM3 (1.0-4.8); MEAN CELL VOLUME 85.2 FL (80.0-100.0); MEAN CORPUSCULAR HEMOGLOBIN 29.2 PG (27.0-34.0); MEAN CORPUSCULAR HGB CONC 34.3 % (32.0-36.0); MONO % 5.6 % (0.0-8.0); NEUT % 81.2 % (16.0-70.0); PLATELET COUNT 294 TH/MM3 (150-450); RED BLOOD COUNT 4.15 MIL/MM3 (4.50-5.90); RED CELL DISTRIBUTION WIDTH 14.1 % (11.6-17.2); WHITE BLOOD COUNT 7.9 TH/MM3 (4.0-11.0)
[2017-04-23 11:18] LABS: ALT (GPT) 23 U/L (12-78); ANION GAP 7 MEQ/L (5-15); AST (GOT) 18 U/L (15-37); BICARBONATE 28.4 MEQ/L (21.0-32.0); BLOOD UREA NITROGEN 22 MG/DL (7-18); CHLORIDE 98 MEQ/L (98-107); GLOMERULAR FILTRATION RATE 96 ML/MIN (>89); POTASSIUM 3.7 MEQ/L (3.5-5.1); SODIUM (NA) 133 MEQ/L (136-145)
[2017-04-23 11:21] LABS: ALKALINE PHOSPHATASE 87 U/L (45-117); TOTAL BILIRUBIN ADULT 0.7 MG/DL (0.2-1.0)
[2017-04-23] MEDS ORDERED: IOHEXOL 350 MG/ML 10 ML VIAL (for RAD DIAG) IVCONTRAST ONE (11:46)
--- NOTE | 2017-04-23 13:08 | RADRPT ---
EXAM DATE/TIME: 04/23/2017 11:38 [place] COMPARISON: No previous studies available for comparison. INDICATIONS : Left lateral wrist, forearm redness and swelling for 4 days IV CONTRAST: 72 cc Omnipaque 350 (iohexol) IV RADIATION DOSE: 13.48 CTDIvol (mGy) MEDICAL HISTORY : None SURGICAL HISTORY : None. ENCOUNTER: Initial ACUITY: 4 - 6 days PAIN SCALE: 7/10 LOCATION: Left wrist TECHNIQUE: Volumetric scanning of the forearm was performed. Using automated exposure control and adjustment of the mA and/or kV according to patient size, radiation dose was kept as low as reasonably achievable to obtain optimal diagnostic quality images. DICOM format image data is available electronically fo r review and comparison. FINDINGS: Involving the superficial subcutaneous tissues of the dorsum of the carpus there is a collection ehsan uring 2.9 x 2.1 x 1.5 cm. Hounsfield units are 40. No air. There is subcutaneous edema seen involving the carpus. No cortical destruction or cortical lucency. No fracture or dislocation. CONCLUSION: There is a collection involving the dorsal soft tissues of the carpus that is felt to relate to a phl egmon that has yet to liquefy into an abscess. Adrián Boles Jr., MD on April 23, 2017 at 13:02 Board Certified Radiologist. This report was verified electronically.
[2017-04-23 14:00] VITALS: BP 132/72; PULSE 75; RESP 16; O2SAT 98
--- NOTE | 2017-04-23 14:36 | HHI.HP ---
HPI Service [facility] Primary Care Physician No Primary Care Physician Admission Diagnosis Skin problem IV drug abuse Diagnoses: Chief Complaint: Skin problem IV drug abuse Travel History International Travel<30 Days: No Contact w/Intl Traveler <30 Da: No Traveled to Known Affected Are: No History of Present Illness Patient is a 41-year-old male comes emergency department complaining of left arm swelling after using IV Dilaudid drug abuse in his left wrist. Patient states that he injects Dilaudid. Patient has noticed the swelling since yesterday and significantly larger left hand than the right side. Patient states that he's been doing IV drugs for about 20 years Has a history of hepatitis C States he used an old set up to shoot up with Review of Systems Constitutional: DENIES: Diaphoretic episodes, Fatigue, Fever, Weight gain, Weight loss, Chills, Dizziness, Change in appetite Endocrine: DENIES: Heat/cold intolerance, Polydipsia Eyes: DENIES: Blurred vision, Diplopia, Eye inflammation, Eye pain, Vision loss Ears, nose, mouth, throat: DENIES: Tinnitus, Hearing loss, Vertigo Respiratory: DENIES: Apneas, Cough, Snoring, Wheezing Cardiovascular: DENIES: Chest pain, Palpitations, Syncope, Dyspnea on Exertion Gastrointestinal: DENIES: Abdominal pain, Black stools, Bloody stools, Constipation Musculoskeletal: DENIES: Joint pain, Muscle aches, Stiffness, Joint Swelling Integumentary: COMPLAINS OF: Abnormal pigmentation (left wrist cellulitis and probable impending abscess) Hematologic/lymphatic: DENIES: Bruising, Lymphadenopathy Immunologic/allergic: DENIES: Eczema, Urticaria Neurologic: DENIES: Headache, Localized weakness, Paresthesias Psychiatric: COMPLAINS OF: Anxiety, Agitation, DENIES: Confusion, Mood changes , Depression Except as stated in HPI: all other systems reviewed are Neg Past Family Social History Past Medical History Hepatitis C IV drug abuse Tobacco abuse Past Surgical History Previous abscess issues Reported Medications Reported Meds & Active Scripts Active Bactrim DS (Sulfamethoxazole-Trimethoprim) 800-160 Mg Tab 1 Tab PO BID 10 Days Cephalexin 500 Mg Tab 500 Mg PO Q6H 10 Days Allergies: Coded Allergies: No Known Allergies (Verified Allergy, Unknown, 04/23/17) Active Ordered Medications Current Medications Piperacillin Sod/ Tazobactam Sod 100 ml @ 200 mls/hr ONCE ONCE IV Last administered on 04/23/17 12:28; Start 04/23/17 at 10:45; Stop 04/23/17 at 11 :14; Status DC Vancomycin HCl 1000 mg/Sodium Chloride 250 ml @ 250 mls/hr ONCE ONCE IV Last administered on 04/23/17 10:56; Start 04/23/17 at 10:45; Stop 04/23/17 at 11 :44; Status DC Sodium Chloride 1,000 ml @ 999 mls/hr BOLUS ONCE IV Last administered on 10:55; Start 04/23/17 at 10:45; Stop 04/23/17 at 11:45; Status DC Sodium Chloride 1,000 ml @ 999 mls/hr BOLUS ONCE IV Last administered on 10:55; Start 04/23/17 at 10:45; Stop 04/23/17 at 11:45; Status DC Iohexol (Omnipaque 350 Inj) 72 ml STK-MED ONCE IVCONTRAST Last administered on 04/23/17 11:46; Start 04/23/17 at 11:46; Stop 04/23/17 at 11:47; Status DC Family History Noncontributory at this time Social History Denies alcohol Smokes a pack of cigarettes a day Shoots IV Dilaudid IV methamphetamine and smokes marijuana Physical Exam Vital Signs Vital Signs Date Time Temp Pulse Resp B/P (MAP) Pulse Ox O2 Delivery O2 Flow Rate FiO2 04/23/17 14:00 75 16 132/72 (92) 98 Room Air 04/23/17 10:02 97.7 71 18 122/56 (78) 95 Room Air 04/23/17 09:50 98.1 78 16 117/58 (77) 96 Physical Exam GENERAL: This is a well-nourished, well-developed patient, in no apparent distress. SKIN: Left wrist with swelling and erythema and tenderness and warmth and area that probably be an abscess in the next day or so left elbow and forearm distally up to the fingertips swollen erythematous warm to touch and fluctuant 4 x 4 centimeter blister looking area on the ulnar aspect of the wrist HEAD: Atraumatic. Normocephalic. No temporal or scalp tenderness. EYES: Pupils equal round and reactive. Extraocular motions intact. No scleral icterus. No injection or drainage. ENT: Nose without bleeding, purulent drainage or septal hematoma. Throat without erythema, tonsillar hypertrophy or exudate. Uvula midline. Airway patent. NECK: Trachea midline. No JVD or lymphadenopathy. Supple, nontender, no meningeal signs. Tongue is midline CARDIOVASCULAR: Regular rate and rhythm without murmurs, gallops, or rubs. S1 and S2 no S3 or S4 RESPIRATORY: Clear to auscultation. Breath sounds equal bilaterally. No wheezes , rales, or rhonchi. GASTROINTESTINAL: Abdomen soft, non-tender, nondistended. No hepato-splenomegaly , or palpable masses. No guarding. MUSCULOSKELETAL: Extremities without clubbing, cyanosis, or edema. No joint tenderness, effusion, or edema noted. No calf tenderness. Negative Homans sign bilaterally. Swelling and erythema and tenderness left wrist area NEUROLOGICAL: Awake and alert. Cranial nerves II through XII intact. Motor and sensory grossly within normal limits. Five out of 5 muscle strength in all muscle groups. Normal speech. Insight and judgment is limited Mood and behaviors appropriate Laboratory Laboratory Tests Test 04/23/17 10:20 White Blood Count 7.9 Red Blood Count 4.15 Hemoglobin 12.1 Hematocrit 35.3 Mean Corpuscular Volume 85.2 Mean Corpuscular Hemoglobin 29.2 Mean Corpuscular Hemoglobin Concent 34.3 Red Cell Distribution Width 14.1 Platelet Count 294 Mean Platelet Volume 7.1 Neutrophils (%) (Auto) 81.2 Lymphocytes (%) (Auto) 11.5 Monocytes (%) (Auto) 5.6 Eosinophils (%) (Auto) 1.2 Basophils (%) (Auto) 0.5 Neutrophils # (Auto) 6.4 Lymphocytes # (Auto) 0.9 Monocytes # (Auto) 0.4 Eosinophils # (Auto) 0.1 Basophils # (Auto) 0.0 CBC Comment DIFF FINAL Differential Comment Blood Urea Nitrogen 22 Creatinine 0.88 Random Glucose 156 Total Protein 8.3 Albumin 3.4 Calcium Level 8.9 Alkaline Phosphatase 87 Aspartate Amino Transf (AST/SGOT) 18 Alanine Aminotransferase (ALT/SGPT) 23 Total Bilirubin 0.7 Sodium Level 133 Potassium Level 3.7 Chloride Level 98 Carbon Dioxide Level 28.4 Anion Gap 7 Estimat Glomerular Filtration Rate 96 Lactic Acid Level 1.3 Date/Time Source Procedure Growth Status 04/23/17 10:25 Blood Peripheral Aerobic Blood Culture Pending Received 04/23/17 10:25 Blood Peripheral Anaerobic Blood Culture Pending Received Result Diagram: 04/23/17 1020 04/23/17 1020 Imaging Last Impressions Upper Extremity CT 04/23/17 0000 Signed Impressions: Service Date/Time: March 11:38 - CONCLUSION: There is a collection involving the dorsal soft tissues of the carpus that is felt to relate to a phlegmon that has yet to liquefy into an abscess. MD Tr Cheney Jr. VTE Risk Assessment Caprinaleksey VTE Risk Assessment: Mod/High Risk (score >= 2) Caprini Risk Assessment Model Point Value = 1 Point Value = 2 Point Value = 3 Point Value = 5 Age 41-60 Minor surgery BMI > 25 kg/m2 Swollen legs Varicose veins or History of unexplained or recurrent spontaneous Oral contraceptives or hormone replacement Sepsis (< 1 month) Serious lung disease, including pneumonia (< 1 month) Abnormal pulmonary function Acute myocardial infarction Congestive heart failure (< 1 month) History of inflammatory bowel disease Medical patient at bed rest Age 61-74 Arthroscopic surgery Major open surgery (> 45 min) Laparoscopic surgery (> 45 min) Malignancy Confined to bed (> 72 hours) Immobilizing plaster cast Central venous access Age >= 75 History of VTE Family history of VTE Factor V Leiden Prothrombin [id number] Lupus anticoagulant Anticardiolipin antibodies Elevated serum homocysteine Heparin-induced thrombocytopenia Other congenital or acquired thrombophilia Stroke (< 1 month) Elective arthroplasty Hip, pelvis, or leg fracture Acute spinal cord injury (< 1 month) Prophylaxis Regimen Total Risk Factor Score Risk Level Prophylaxis Regimen 0-1 Low Early ambulation 2 Moderate Order ONE of the following: *Sequential Compression Device (SCD) *Heparin 5000 units SQ BID 3-4 Higher Order ONE of the following medications: *Heparin 5000 units SQ TID *Enoxaparin/Lovenox 40 mg SQ daily (WT < 150 kg, CrCl > 30 mL/min) *Enoxaparin/Lovenox 30 mg SQ daily (WT < 150 kg, CrCl > 10-29 mL/min) *Enoxaparin/Lovenox 30 mg SQ BID (WT < 150 kg, CrCl > 30 mL/min) AND/OR *Sequential Compression Device (SCD) 5 or more Highest Order ONE of the following medications: *Heparin 5000 units SQ TID (Preferred with Epidurals) *Enoxaparin/Lovenox 40 mg SQ daily (WT < 150 kg, CrCl > 30 mL/min) *Enoxaparin/Lovenox 30 mg SQ daily (WT < 150 kg, CrCl > 10-29 mL/min) *Enoxaparin/Lovenox 30 mg SQ BID (WT < 150 kg, CrCl > 30 mL/min) AND *Sequential Compression Device (SCD) Assessment and Plan Assessment and Plan Left wrist and forearm cellulitis impending abscess Continue on vancomycin and Zosyn Hepatitis C chronic IV drug abuse continues to shoot up IV Dilaudid and IV methamphetamine Tobacco abuse recommend cessation NicoDerm patch Patient at risk for IV drug abuse here in the hospital Code Status Full code Discussed Condition With RN, patient, and ER physician Physician Certification 2 Midnight Certification Type: Admission for Inpatient Services Order for Inpatient Services The services are ordered in accordance with Medicare regulations or non- Medicare payer requirements, as applicable. In the case of services not specified as inpatient-only, they are appropriately provided as inpatient services in accordance with the 2-midnight benchmark. Estimated LOS (days): 3 days is the estimated time the patient will need to remain in the hospital, assuming treatment plan goals are met and no additional complications. Post-Hospital Plan: Not yet determined Mychal Segundo DO Apr 23, 2017 14:36
[2017-04-23] MEDS ORDERED: cloNIDine HCL 0.1 MG TAB PO PRN (14:45)
[2017-04-23] MEDS ORDERED: SODIUM CHLORIDE 0.9% FLUSH 10 ML FLUSH IV FLUSH PRN (14:45)
[2017-04-23] MEDS ORDERED: ONDANSETRON HCL 4 MG/2 ML VIAL IVP PRN (14:45)
[2017-04-23] MEDS ORDERED: ACETAMINOPHEN 325 MG TAB PO PRN ×2 (14:45)
[2017-04-23] MEDS ORDERED: NALOXONE HCL 0.4 MG/ML AMP IV PUSH PRN (14:45)
[2017-04-23] MEDS ORDERED: PROCHLORPERAZINE 25 MG SUPP RECTAL PRN (14:45)
[2017-04-23] MEDS ORDERED: Vancomycin Consult Pharmacy 1 EA OTHER SCH (14:45)
[2017-04-23] MEDS ORDERED: BISACODYL 10 MG SUPP RECTAL PRN (14:45)
[2017-04-23] MEDS ORDERED: LACTULOSE SYRUP 20 GM/30 ML CUP PO PRN (14:45)
[2017-04-23] MEDS ORDERED: HYDROmorphone HCL PF 1 MG/ML VIAL IV PUSH PRN ×2 (14:45)
[2017-04-23] MEDS ORDERED: MAGNESIUM HYDROXIDE SUSP 30 ML CUP PO PRN (14:45)
[2017-04-23] MEDS ORDERED: SENNOSIDES 8.6 MG TAB PO PRN (14:45)
[2017-04-23] MEDS ORDERED: HYDROmorphone HCL 2 MG TAB PO PRN (14:45)
[2017-04-23] MEDS ORDERED: PILL SPLITTER OTHER PRN (15:30)
[2017-04-23] MEDS: SODIUM CHLOR 0.9% 1000 ML INJ 1,000 ML IV SCH (15:51)
[2017-04-23] MEDS: PIPERACIL-TAZO 4.5 GM PREMIX 100 ML IV SCH ×2 (15:51→22:20)
[2017-04-23] MEDS: NICOTINE 14 MG/24 HR PATCH T-DERMAL SCH (15:51)
[2017-04-23 16:41] VITALS: BP 132/75; PULSE 75; RESP 16; O2SAT 100
[2017-04-23 17:09] VITALS: BP 112/58; PULSE 67; RESP 18; TEMP 98.5; O2SAT 96
[2017-04-23 20:00] VITALS: BP 106/57; PULSE 80; RESP 20; TEMP 98.7; O2SAT 95
[2017-04-23] MEDS: FAMOTIDINE 20 MG TAB PO SCH (20:13)
[2017-04-23] MEDS: HYDROmorphone HCL 2 MG TAB PO PRN (20:13)
[2017-04-23] MEDS: DOCUSATE SODIUM 50 MG/SENNA 8.6 MG TAB PO SCH (20:14)
[2017-04-23] MEDS: SODIUM CHLORIDE 0.9% FLUSH 10 ML FLUSH IV FLUSH SCH (20:15)
[2017-04-23] MEDS: VANCOMYCIN INJ 1,500 MG in SODIUM CHLORID 0.9% 500 ML INJ 500 ML IV SCH (20:22)
[2017-04-24] VITALS: BP 105/56; PULSE 69; RESP 22; TEMP 98.3; O2SAT 94
[2017-04-24] MEDS: HYDROmorphone HCL 2 MG TAB PO PRN ×3 (00:52→08:51)
[2017-04-24 04:00] VITALS: BP 100/58; PULSE 74; RESP 20; TEMP 98.8; O2SAT 95
[2017-04-24] MEDS: PIPERACIL-TAZO 4.5 GM PREMIX 100 ML IV SCH (04:51)
[2017-04-24] MEDS: SODIUM CHLOR 0.9% 1000 ML INJ 1,000 ML IV SCH ×2 (04:52→11:05)
[2017-04-24 08:00] VITALS: BP 122/62; PULSE 66; RESP 18; TEMP 97.7; O2SAT 97
[2017-04-24] MEDS: VANCOMYCIN INJ 1,500 MG in SODIUM CHLORID 0.9% 500 ML INJ 500 ML IV SCH (08:43)
[2017-04-24] MEDS: NICOTINE 14 MG/24 HR PATCH T-DERMAL SCH (08:43)
[2017-04-24] MEDS: DOCUSATE SODIUM 50 MG/SENNA 8.6 MG TAB PO SCH (08:43)
[2017-04-24] MEDS: SODIUM CHLORIDE 0.9% FLUSH 10 ML FLUSH IV FLUSH SCH (08:43)
[2017-04-24] MEDS: FAMOTIDINE 20 MG TAB PO SCH (08:43)
[2017-04-24 08:51] LABS: AUTOMATED NEUTROPHIL # 5.2 TH/MM3 (1.8-7.7); BASOPHIL % 0.4 % (0.0-2.0); EOSINOPHIL # 0.1 TH/MM3 (0-0.4); EOSINOPHIL % 1.5 % (0.0-4.0); HEMO FLAGS DIFF FINAL; LYMPH % 18.1 % (9.0-44.0); LYMPHOCYTE # 1.3 TH/MM3 (1.0-4.8); MEAN CELL VOLUME 85.4 FL (80.0-100.0); MEAN CORPUSCULAR HEMOGLOBIN 29.1 PG (27.0-34.0); PLATELET COUNT 270 TH/MM3 (150-450); RED BLOOD COUNT 3.87 MIL/MM3 (4.50-5.90); RED CELL DISTRIBUTION WIDTH 14.3 % (11.6-17.2); WHITE BLOOD COUNT 7.2 TH/MM3 (4.0-11.0)
[2017-04-24] MEDS ORDERED: REMOVE OLD PATCH T-DERMAL SCH (09:00)
--- NOTE | 2017-04-24 09:03 | HHI.PR ---
Subjective Remarks Left AMA Objective Vitals Vital Signs Date Time Temp Pulse Resp B/P (MAP) Pulse Ox O2 Delivery O2 Flow Rate FiO2 04/24/17 04:00 98.8 74 20 100/58 (72) 95 04/24/17 00:00 98.3 69 22 105/56 (72) 94 04/23/17 20:00 98.7 80 20 106/57 (73) 95 04/23/17 19:45 Room Air 04/23/17 17:09 98.5 67 18 112/58 (76) 96 04/23/17 16:41 75 16 132/75 (94) 100 Room Air 04/23/17 14:00 75 16 132/72 (92) 98 Room Air 04/23/17 10:02 97.7 71 18 122/56 (78) 95 Room Air 04/23/17 09:50 98.1 78 16 117/58 (77) 96 I/O 04/23/17 04/23/17 04/23/17 04/24/17 04/24/17 04/24/17 06:59 14:59 22:59 06:59 14:59 22:59 Intake Total 2250 ml 850 ml 1628 ml Balance 2250 ml 850 ml 1628 ml Intake Oral 400 ml IV Total 2250 ml 850 ml 1228 ml # Voids 3 # Bowel Movements 1 Result Diagram: 04/24/17 0808 04/23/17 1020 Imaging Last Impressions Upper Extremity CT 04/23/17 0000 Signed Impressions: Service Date/Time: March 11:38 - CONCLUSION: There is a collection involving the dorsal soft tissues of the carpus that is felt to relate to a phlegmon that has yet to liquefy into an abscess. Adrián Boles Jr., MD Objective Remarks left AMA A/P Assessment and Plan Left wrist and forearm cellulitis impending abscess Continue on vancomycin and Zosyn Hepatitis C chronic IV drug abuse continues to shoot up IV Dilaudid and IV methamphetamine. Tobacco abuse recommend cessation, counselled. NicoDerm patch. Patient at risk for IV drug abuse here in the hospital Code Status Full code Discussed Condition With Patient, nurse Discharge Planning Patient left Nevin Munoz MD Apr 24, 2017 09:03
[2017-04-24 09:15] LABS: ALKALINE PHOSPHATASE 71 U/L (45-117); ALT (GPT) 22 U/L (12-78); ANION GAP 6 MEQ/L (5-15); AST (GOT) 12 U/L (15-37); BICARBONATE 24.5 MEQ/L (21.0-32.0); BLOOD UREA NITROGEN 7 MG/DL (7-18); CHLORIDE 107 MEQ/L (98-107); FREE T4 1.01 NG/DL (0.76-1.46); GLOMERULAR FILTRATION RATE 112 ML/MIN (>89); MAGNESIUM 2.3 MG/DL (1.5-2.5); SODIUM (NA) 137 MEQ/L (136-145); TOTAL BILIRUBIN ADULT 0.4 MG/DL (0.2-1.0)
[2017-04-24 12:21] LABS: HEMOGLOBIN A1a 1.7 %; HEMOGLOBIN A1b 1.6 %; HEMOGLOBIN Ao 84.9 %; HEMOGLOBIN LA1C 2.1 %; HEMOGLOBIN P3 3.7 %
[2017-04-25] MEDS ORDERED: PHARMACY ORDERED LAB ONE (08:45)
== END 2017-04-24 11:40 | disposition left against medical advice (07) | DRG 603 ==
LOC: NEPE 09:43 → NEDA 13:37 → N04B 17:04
PROVIDERS: ADMIT Hospitalist; ATTEND Hospitalist
DX: L03.114 Cellulitis of left upper limb (principal); F11.10 Opioid abuse, uncomplicated; F19.10 Other psychoactive substance abuse, uncomplicated; F17.210 Nicotine dependence, cigarettes, uncomplicated; B19.20 Unspecified viral hepatitis C without hepatic coma
CPT/HCPCS: 73201; 80053; 83036; 83605; 83735; 84100; 84439; 84443; 85025; 87040; 96374; 96375; J2543; J3370; J7030; J7040; J7050; Q9967

== ENCOUNTER 2017-05-28 18:20 | Inpatient (IN) | payer SELFPAY ==
[~2017-05-28] VITALS: Ht 182.9 cm; Wt 74.5 kg
[~2017-05-28 18:20] MED LIST changes: +DEXAMETHASONE SOD PHOS 4 MG/ML VIAL IV ONE; +GLYCOPYRROLATE 1 MG/5 ML SYRINGE IV PUSH ONE; +LACTATED RINGER'S 1000 ML INJ 1,000 ML IV ONE; +LIDOCAINE HCL 1% PF 5 ML SYRINGE OTHER ONE; +ONDANSETRON HCL 4 MG/2 ML VIAL IV PUSH ONE; +PHENYLEPH/NS 1000 MCG/10 ML SYR IV ONE; +PROPOFOL 200 MG/20 ML AMP IV ONE; +ePHEDrine/NS 25 MG/5 ML SYRINGE IV ONE
[2017-05-28 18:30] VITALS: BP 130/86; PULSE 72; RESP 18; TEMP 97.9; O2SAT 100
[2017-05-28] MEDS ORDERED: TETANUS/DIPHTHERIA TOXOID ADULT 0.5 ML VIAL IM ONE (18:30)
[2017-05-28] MEDS ORDERED: ceFAZolin 2 GM PREMIX 50 ML IV ONE (18:30)
--- NOTE | 2017-05-28 18:31 | PD ---
HPI Chief Complaint: Injury Time Seen by Provider: 18:28 Travel History International Travel<30 days: No Contact w/Intl Traveler<30days: No Traveled to known affect area: No History of Present Illness HPI [id number] male presents for evaluation of finger amputation. Prior to arrival the patient was on a tree removing a tree branch. He reports that when the tree branch broke the rope that was attached to the tree amputated his right third finger at approximately the level of the PIP joint. He has pain, throbbing, constant, worse with movement. He received 8 mg of morphine prior to arrival. He last had something to drink 2 hours ago. Last tetanus vaccination unknown. No other complaints. PFSH Past Medical History Blood Disorders: Yes (HEP C) Cancer: No Cardiovascular Problems: No Cerebrovascular Accident: No Diminished Hearing: No Endocrine: No Gastrointestinal Disorders: No Genitourinary: No Hepatitis: Yes (hep C ) Musculoskeletal: No Neurologic: No Psychiatric: No Reproductive: No Respiratory: No Immunizations Current: Yes Migraines: No Seizures: No Past Surgical History Abdominal Surgery: No Cardiac Surgery: No Ear Surgery: No Endocrine Surgery: No Genitourinary Surgery: No Gynecologic Surgery: No Oral Surgery: No Thoracic Surgery: No Other Surgery: No Social History Alcohol Use: No Tobacco Use: Yes (1 PPD) Substance Use: Yes (IV Dilaudid, meth and marijuana ) Allergies-Medications (Allergen,Severity, Reaction): Coded Allergies: No Known Allergies (Verified Allergy, Unknown, 04/23/17) Reported Meds & Prescriptions Reported Meds & Active Scripts Active No Active Prescriptions or Reported Medications Review of Systems Except as stated in HPI: all other systems reviewed are Neg Physical Exam Narrative GENERAL: Well-nourished male who appears anxious and uncomfortable. SKIN: Warm and dry. HEAD: Atraumatic. Normocephalic. EYES: Pupils equal and round. No scleral icterus. No injection or drainage. ENT: No nasal bleeding or discharge. Mucous membranes pink and moist. NECK: Trachea midline. No JVD. CARDIOVASCULAR: Regular rate and rhythm. No murmur appreciated. RESPIRATORY: No accessory muscle use. Clear to auscultation. Breath sounds equal bilaterally. GASTROINTESTINAL: Abdomen soft, non-tender, nondistended. Hepatic and splenic margins not palpable. MUSCULOSKELETAL: Examination of the right hand reveals finger amputation at the level of the PIP joint. NEUROLOGICAL: Awake and alert. No obvious cranial nerve deficits. Motor grossly within normal limits. Normal speech. Data Data Last Documented VS Vital Signs Date Time Temp Pulse Resp B/P (MAP) Pulse Ox O2 Delivery O2 Flow Rate FiO2 05/28/17 19:17 73 20 135/88 (104) 100 Room Air 05/28/17 18:30 97.9 Orders Orders Finger ([id number]) (05/28/17 ) Cefazolin 2 Gm Premix (Ancef 2 Gm Premix (05/28/17 18:30) Tetanus/Diphtheria Tox Adult (Tetanus/Di (05/28/17 18:30) Complete Blood Count With Diff (05/28/17 18:29) Basic Metabolic Panel (Bmp) (05/28/17 18:29) Act Partial Throm Time (Ptt) (05/28/17 18:29) Prothrombin Time / Inr (Pt) (05/28/17 18:29) Lidocaine 1% Inj (50 Ml) (Xylocaine 1% I (05/28/17 19:30) Bupivacaine Pf 0.5% Inj (Marcaine Pf 0.5 (05/28/17 19:30) Admit Order (Ed Use Only) (05/28/17 19:37) Consult Hand Surgery (05/28/17 ) Admit To Inpatient (05/28/17 ) Vital Signs (Adult) Q4H (05/28/17 19:36) Activity Oob With Assistance (05/28/17 19:36) Diet Npo (05/29/17 Breakfast) Sodium Chlor 0.9% 1000 Ml Inj (Ns 1000 M (05/28/17 19:36) Sodium Chloride 0.9% Flush (Ns Flush) (05/28/17 19:45) Sodium Chloride 0.9% Flush (Ns Flush) (05/28/17 21:00) Acetaminophen (Tylenol) (05/28/17 19:45) Ondansetron Inj (Zofran Inj) (05/28/17 19:45) Basic Metabolic Panel (Bmp) (05/29/17 06:00) Complete Blood Count With Diff (05/29/17 06:00) Scd Bilateral/Knee High MURRAY.BID (05/28/17 19:36) Naloxone Inj (Narcan Inj) (05/28/17 19:45) Docusate Sodium-Senna (Marcy-Colace) (05/28/17 21:00) Magnesium Hydroxide Liq (Milk Of Magnesi (05/28/17 19:45) Sennosides (Senokot) (05/28/17 19:45) Bisacodyl Supp (Dulcolax Supp) (05/28/17 19:45) Lactulose Liq (Lactulose Liq) (05/28/17 19:45) Inpatient Certification (05/28/17 ) Morphine Inj (Morphine Inj) (05/28/17 19:45) Labs Laboratory Tests Test 05/28/17 18:40 White Blood Count 7.7 TH/MM3 Red Blood Count 3.76 MIL/MM3 Hemoglobin 11.1 GM/DL Hematocrit 32.2 % Mean Corpuscular Volume 85.5 FL Mean Corpuscular Hemoglobin 29.6 PG Mean Corpuscular Hemoglobin Concent 34.6 % Red Cell Distribution Width 14.8 % Platelet Count 363 TH/MM3 Mean Platelet Volume 7.2 FL Neutrophils (%) (Auto) 63.6 % Lymphocytes (%) (Auto) 26.0 % Monocytes (%) (Auto) 8.6 % Eosinophils (%) (Auto) 1.0 % Basophils (%) (Auto) 0.8 % Neutrophils # (Auto) 4.9 TH/MM3 Lymphocytes # (Auto) 2.0 TH/MM3 Monocytes # (Auto) 0.7 TH/MM3 Eosinophils # (Auto) 0.1 TH/MM3 Basophils # (Auto) 0.1 TH/MM3 CBC Comment DIFF FINAL Differential Comment Prothrombin Time 11.3 SEC Prothromb Time International Ratio 1.1 RATIO Activated Partial Thromboplast Time 27.8 SEC Blood Urea Nitrogen 20 MG/DL Creatinine 1.08 MG/DL Random Glucose 87 MG/DL Calcium Level 9.1 MG/DL Sodium Level 138 MEQ/L Potassium Level 4.0 MEQ/L Chloride Level 104 MEQ/L Carbon Dioxide Level 27.2 MEQ/L Anion Gap 7 MEQ/L Estimat Glomerular Filtration Rate 76 ML/MIN [facility] Medical Decision Making Medical Screen Exam Complete: Yes Emergency Medical Condition: Yes Medical Record Reviewed: Yes Differential Diagnosis Finger amputation, open fracture, tissue avulsion Narrative Course I discussed the case with the on-call hand surgeon Dr. Mehta who reports that the patient can be transferred to [facility] for attempted digit reimplantation versus the patient staying here for completion of the amputation depending on the patient's wishes. I discussed these options thoroughly with the patient who wished to call his and discussed with her prior to making a decision. Upon reexamination the patient has decided that he would prefer to stay here to have the dictation completed. Discussed with Dr. Mehta who plans on taking the patient to the OR [facility] and would like the patient admitted to the hospitalist. The patient was given IV Ancef. A digital block was performed for patient comfort. The wound will be thoroughly irrigated. Procedures Procedure Narrative Digital block: The right third finger was prepped with Betadine. Digital block performed with 0.5% Marcaine. Patient tolerated procedure well. Diagnosis Primary Impression: Finger amputation, traumatic Admitting Information Admitting Physician Requests: Observation Scripts No Active Prescriptions or Reported Meds Ben Valencia May 28, 2017 18:31
[2017-05-28 18:57] LABS: AUTOMATED NEUTROPHIL # 4.9 TH/MM3 (1.8-7.7); BASOPHIL # 0.1 TH/MM3 (0-0.2); BASOPHIL % 0.8 % (0.0-2.0); EOSINOPHIL # 0.1 TH/MM3 (0-0.4); HEMATOCRIT 32.2 % (39.0-51.0); HEMOGLOBIN 11.1 GM/DL (13.0-17.0); MEAN CELL VOLUME 85.5 FL (80.0-100.0); MEAN CORPUSCULAR HEMOGLOBIN 29.6 PG (27.0-34.0); MEAN CORPUSCULAR HGB CONC 34.6 % (32.0-36.0); MEAN PLATELET VOLUME 7.2 FL (7.0-11.0); MONO % 8.6 % (0.0-8.0); MONOCYTE # 0.7 TH/MM3 (0-0.9); NEUT % 63.6 % (16.0-70.0); PLATELET COUNT 363 TH/MM3 (150-450); RED BLOOD COUNT 3.76 MIL/MM3 (4.50-5.90); RED CELL DISTRIBUTION WIDTH 14.8 % (11.6-17.2); WHITE BLOOD COUNT 7.7 TH/MM3 (4.0-11.0)
--- NOTE | 2017-05-28 18:59 | RADRPT ---
EXAM DATE/TIME: 05/28/2017 18:40 [facility] COMPARISON: No previous studies available for comparison. INDICATIONS : Right hand, third digit pain and open wound. Rope got wrapped around finger. MEDICAL HISTORY : None. SURGICAL HISTORY : None. ENCOUNTER: Initial ACUITY: 1 day PAIN SCORE: 10/10 LOCATION: Right hand, third digit. FINDINGS: There is a comminuted fracture deformity of the third middle phalanx with amputation of the digit dis peter to this point an overlying soft tissue deformity with osseous fragments extending to the surface. CONCLUSION: Partial amputation and fracture deformity of the third digit. Salvador Jules MD on May 28, 2017 at 18:56 Board Certified Radiologist. This report was verified electronically.
[2017-05-28 19:06] LABS: INTERNATIONAL NORMALIZED RATIO 1.1 RATIO; PROTHROMBIN TIME - PATIENT 11.3 SEC (9.8-11.6)
[2017-05-28 19:17] VITALS: BP 135/88; PULSE 73; RESP 20; O2SAT 100
[2017-05-28 19:19] LABS: BICARBONATE 27.2 MEQ/L (21.0-32.0); CALCIUM 9.1 MG/DL (8.5-10.1); CREATININE 1.08 MG/DL (0.60-1.30)
[2017-05-28] MEDS ORDERED: LIDOCAINE HCL 1% 50 ML VIAL INFIL ONE (19:30)
[2017-05-28] MEDS ORDERED: BUPIVACAINE HCL PF 0.5% 10 ML VIAL INFIL ONE (19:30)
[2017-05-28] MEDS ORDERED: SENNOSIDES 8.6 MG TAB PO PRN (19:45)
[2017-05-28] MEDS ORDERED: ACETAMINOPHEN 325 MG TAB PO PRN (19:45)
[2017-05-28] MEDS ORDERED: LACTULOSE SYRUP 20 GM/30 ML CUP PO PRN (19:45)
[2017-05-28] MEDS ORDERED: MAGNESIUM HYDROXIDE SUSP 30 ML CUP PO PRN (19:45)
[2017-05-28] MEDS ORDERED: SODIUM CHLORIDE 0.9% FLUSH 10 ML FLUSH IV FLUSH PRN (19:45)
[2017-05-28] MEDS ORDERED: NALOXONE HCL 0.4 MG/ML AMP IV PUSH PRN (19:45)
[2017-05-28] MEDS ORDERED: MORPHINE SULFATE 2 MG/ML INJ IV PUSH PRN (19:45)
[2017-05-28] MEDS ORDERED: BISACODYL 10 MG SUPP RECTAL PRN (19:45)
[2017-05-28] MEDS ORDERED: ONDANSETRON HCL 4 MG/2 ML VIAL IVP PRN (19:45)
[2017-05-28] MEDS ORDERED: NEOMYCIN/POLYMYXIN 1 ML G.U. IRRIGANT ONE (20:05)
[2017-05-28] MEDS ORDERED: BUPIVACAINE HCL PF 0.5% 30 ML VIAL ONE (20:07)
[2017-05-28] MEDS: DOCUSATE SODIUM 50 MG/SENNA 8.6 MG TAB PO SCH (21:00)
[2017-05-28] MEDS ORDERED: LIDOCAINE HCL 2% 50 ML VIAL ONE (21:17)
[2017-05-28] MEDS ORDERED: BACITRACIN OPHT OINT 3.5 GM TUBO ONE (21:33)
[2017-05-28] MEDS ORDERED: DO NOT ADM ANY ANTICOAGULANT DRUGS PRN (22:25)
[2017-05-28] MEDS: SODIUM CHLORIDE 0.9% FLUSH 10 ML FLUSH IV FLUSH SCH (22:45)
[2017-05-28] MEDS: SODIUM CHLOR 0.9% 1000 ML INJ 1,000 ML IV SCH (22:45)
[2017-05-29] VITALS: BP 136/76; PULSE 60; RESP 22; TEMP 96.3; O2SAT 99
--- NOTE | 2017-05-29 00:19 | PD.ORT.PN ---
Subjective Subjective Remarks Patient comfortable in PACU. Objective Vitals Vital Signs Date Time Temp Pulse Resp B/P (MAP) Pulse Ox O2 Delivery O2 Flow Rate FiO2 05/28/17 23:03 67 22 134/68 (90) 99 Room Air 05/28/17 22:45 70 22 132/72 (92) 98 Room Air 05/28/17 22:25 97.6 77 18 135/74 (94) 97 Nasal Cannula 2 05/28/17 19:17 73 20 135/88 (104) 100 Room Air 05/28/17 18:30 97.9 72 18 130/86 (101) 100 I/O 05/28/17 05/28/17 05/28/17 05/29/17 05/29/17 05/29/17 07:00 15:00 23:00 07:00 15:00 23:00 Intake Total 1000 ml Output Total 10 ml Balance 990 ml Intake Other 1000 ml Output Estimated Blood Loss 10 ml Result Diagram: 05/28/17 1840 05/28/17 1840 Other Results Laboratory Tests Test 05/28/17 18:40 Prothromb Time International Ratio 1.1 RATIO Prothrombin Time 11.3 SEC (9.8-11.6) Objective Remarks Dressing in place Assessment & Plan Assessment and Plan POD0 s/p I&D and revision amputation right middle finger. Patient declined transfer to [facility] for replantation. -Okay to discharge per hand surgery, elevate right hand, recommend off work for 2 weeks. followup in 2 weeks Kandi Mehta MD May 29, 2017 00:19
--- NOTE | 2017-05-29 02:43 | HHI.HP ---
HPI Service [facility] Primary Care Physician No Primary Care Physician Admission Diagnosis finger amputation Diagnoses: Chief Complaint: accidental finger amputation Travel History International Travel<30 Days: No Contact w/Intl Traveler <30 Da: No Traveled to Known Affected Are: No History of Present Illness 42-year-old right handed male with history of active IVDU, hepatitis C, tobacco use, presents after an accidental right distal third finger amputation on . Patient reports that he was moving a large tree branch with a rope, and when the tree branch broke, the rope amputated his right distal third finger at the level of the PIP joint. He reports constant throbbing 10/10 pain. He was transported to the hospital via [facility]. Upon arrival to the ED, finger x-ray showed partial amputation and fracture deformity of the right third digit. ER PA offered transfer to [facility] however patient declined. Tetanus vaccine was updated and he was given IV Ancef. Hand surgery was consulted, the patient went to the OR a few hours ago for I&D and revision of right third finger amputation. The patient has now been cleared for discharge by hand surgery. The patient is now seen after surgery. He continues to report 10/10 pain. He states "y'all aren't giving me anything for pain." He admits to using IV drugs , injects 2-3 crushed Dilaudid 8mg tablets daily. The patient was informed that he was cleared for discharge by hand surgery, however he does not want to go home at this time, states "I just want to sleep." Otherwise, he denies any other medical complaints including no recent fevers/chill, chest pain, shortness of breath, abdominal pain, nausea/vomiting. Of note, patient was seen here in March2017 for LUE abscess and ended up leaving [facility] on day 2. Review of Systems Except as stated in HPI: all other systems reviewed are Neg Past Family Social History Past Medical History active IVDU hepatitis C tobacco use Past Surgical History No surgeries prior to this visit. Reported Medications Denies taking any prescribed medications on daily basis. Allergies: Coded Allergies: No Known Allergies (Verified Allergy, Unknown, 04/23/17) Active Ordered Medications Current Medications Medications (Trade) Dose Ordered Sig/Talib Route Start Time Stop Time Status Last Admin Sodium Chloride 1,000 ml @ 100 mls/hr Q10H IV 05/28/17 21:00 05/28/17 22:45 (NS Flush) 2 ml UNSCH PRN IV FLUSH 05/28/17 19:45 (NS Flush) 2 ml BID IV FLUSH 05/28/17 21:00 05/28/17 22:45 (Tylenol) 650 mg Q4H PRN PO 05/28/17 19:45 (Zofran Inj) 4 mg Q6H PRN IVP 05/28/17 19:45 05/28/17 23:33 (Narcan Inj) 0.4 mg UNSCH PRN IV PUSH 05/28/17 19:45 (Marcy-Colace) 1 tab BID PO 05/28/17 21:00 (Milk Of Magnesia Liq) 30 ml Q12H PRN PO 05/28/17 19:45 (Senokot) 17.2 mg Q12H PRN PO 05/28/17 19:45 (Dulcolax Supp) 10 mg DAILY PRN RECTAL 05/28/17 19:45 (Lactulose Liq) 30 ml DAILY PRN PO 05/28/17 19:45 (Morphine Inj) 2 mg Q3H PRN IV PUSH 05/28/17 19:45 05/28/17 23:33 Miscellaneous Information ALL NURSING DEPARTME... UNSCH PRN .XX 05/28/17 22:25 05/29/17 22:24 Family History Denies any significant family history of heart disease, stroke, diabetes, or cancers. Social History Smokes tobacco 1 PPD Denies any alcohol use Admits to IVDU with drug of choice dilaudid (patient denied use of meth however girlfriend at bedside reported meth use to RN earlier today) Smokes marijuana Physical Exam Vital Signs Vital Signs Date Time Temp Pulse Resp B/P (MAP) Pulse Ox O2 Delivery O2 Flow Rate FiO2 05/28/17 23:03 67 22 134/68 (90) 99 Room Air 05/28/17 22:45 70 22 132/72 (92) 98 Room Air 05/28/17 22:25 97.6 77 18 135/74 (94) 97 Nasal Cannula 2 05/28/17 19:17 73 20 135/88 (104) 100 Room Air 05/28/17 18:30 97.9 72 18 130/86 (101) 100 Physical Exam GENERAL: Well-nourished, well-developed middle aged male patient in NAD. SKIN: Warm and dry. No rash. HEAD: Normocephalic. Atraumatic. EYES: Pupils equal and round. No scleral icterus. No injection or drainage. ENT: No nasal bleeding or discharge. Mucous membranes pink and moist. NECK: Supple. Trachea midline. CARDIOVASCULAR: Regular rate and rhythm. S1, S2 noted. No murmur appreciated. RESPIRATORY: No accessory muscle use. Clear to auscultation. Breath sounds equal bilaterally. GASTROINTESTINAL: Abdomen soft, non-tender, nondistended. Normoactive bowel sounds x4. MUSCULOSKELETAL: Right hand and wrist wrapped with surgical dressing, CDI. Distal capillary refill 2+ of 1st, 2nd, 4th, 5h digits on the right hand. NEUROLOGICAL: Awake and alert. No obvious cranial nerve deficits. Motor grossly within normal limits. 5/5 muscle strength in bilateral upper and lower extremities. Normal speech. PSYCHIATRIC: Anxious and jittery; insight and judgment normal. Laboratory Laboratory Tests Test 05/28/17 18:40 White Blood Count 7.7 Red Blood Count 3.76 Hemoglobin 11.1 Hematocrit 32.2 Mean Corpuscular Volume 85.5 Mean Corpuscular Hemoglobin 29.6 Mean Corpuscular Hemoglobin Concent 34.6 Red Cell Distribution Width 14.8 Platelet Count 363 Mean Platelet Volume 7.2 Neutrophils (%) (Auto) 63.6 Lymphocytes (%) (Auto) 26.0 Monocytes (%) (Auto) 8.6 Eosinophils (%) (Auto) 1.0 Basophils (%) (Auto) 0.8 Neutrophils # (Auto) 4.9 Lymphocytes # (Auto) 2.0 Monocytes # (Auto) 0.7 Eosinophils # (Auto) 0.1 Basophils # (Auto) 0.1 CBC Comment DIFF FINAL Differential Comment Prothrombin Time 11.3 Prothromb Time International Ratio 1.1 Activated Partial Thromboplast Time 27.8 Blood Urea Nitrogen 20 Creatinine 1.08 Random Glucose 87 Calcium Level 9.1 Sodium Level 138 Potassium Level 4.0 Chloride Level 104 Carbon Dioxide Level 27.2 Anion Gap 7 Estimat Glomerular Filtration Rate 76 Result Diagram: 05/28/17183905/28/17 1840 Imaging Last Impressions Finger X-Ray 05/28/17 0000 Signed Impressions: Service Date/Time: May 18:40 - CONCLUSION: Partial amputation and fracture deformity of the third digit. MD Tr Farrell VTE Risk Assessment Tr VTE Risk Assessment: No/Low Risk (score <= 1) Caprini Risk Assessment Model Point Value = 1 Point Value = 2 Point Value = 3 Point Value = 5 Age 41-60 Minor surgery BMI > 25 kg/m2 Swollen legs Varicose veins or History of unexplained or recurrent spontaneous Oral contraceptives or hormone replacement Sepsis (< 1 month) Serious lung disease, including pneumonia (< 1 month) Abnormal pulmonary function Acute myocardial infarction Congestive heart failure (< 1 month) History of inflammatory bowel disease Medical patient at bed rest Age 61-74 Arthroscopic surgery Major open surgery (> 45 min) Laparoscopic surgery (> 45 min) Malignancy Confined to bed (> 72 hours) Immobilizing plaster cast Central venous access Age >= 75 History of VTE Family history of VTE Factor V Leiden Prothrombin [id number] Lupus anticoagulant Anticardiolipin antibodies Elevated serum homocysteine Heparin-induced thrombocytopenia Other congenital or acquired thrombophilia Stroke (< 1 month) Elective arthroplasty Hip, pelvis, or leg fracture Acute spinal cord injury (< 1 month) Prophylaxis Regimen Total Risk Factor Score Risk Level Prophylaxis Regimen 0-1 Low Early ambulation 2 Moderate Order ONE of the following: *Sequential Compression Device (SCD) *Heparin 5000 units SQ BID 3-4 Higher Order ONE of the following medications: *Heparin 5000 units SQ TID *Enoxaparin/Lovenox 40 mg SQ daily (WT < 150 kg, CrCl > 30 mL/min) *Enoxaparin/Lovenox 30 mg SQ daily (WT < 150 kg, CrCl > 10-29 mL/min) *Enoxaparin/Lovenox 30 mg SQ BID (WT < 150 kg, CrCl > 30 mL/min) AND/OR *Sequential Compression Device (SCD) 5 or more Highest Order ONE of the following medications: *Heparin 5000 units SQ TID (Preferred with Epidurals) *Enoxaparin/Lovenox 40 mg SQ daily (WT < 150 kg, CrCl > 30 mL/min) *Enoxaparin/Lovenox 30 mg SQ daily (WT < 150 kg, CrCl > 10-29 mL/min) *Enoxaparin/Lovenox 30 mg SQ BID (WT < 150 kg, CrCl > 30 mL/min) AND *Sequential Compression Device (SCD) Assessment and Plan Problem List: (1) Finger amputation, traumatic ICD Code: S68.119A - Complete traumatic metacarpophalangeal amputation of unspecified finger, initial encounter Status: Acute Assessment and Plan 42-year-old right handed male with history of active IVDU, hepatitis C, tobacco use, presents after an accidental right distal third finger amputation on . Right 3rd Digit Amputation: s/p tree cutting accident. Finger x-ray showed partial amputation and fracture deformity of the right third digit. ER PA offered transfer to [facility] however patient declined. -Tetanus vaccine was updated and he was given IV Ancef. -Hand surgery consulted, s/p I&D and revision of right 3rd finger amputation by Dr. Mehta -The patient has now been cleared for discharge by hand surgery, no work [id number], follow up in 2weeks -Elevate the RUE -Continue pain control with [place] prn pain scale and IV morphine prn breakthrough pain (consider d/c IV morphine in am when pain better controlled) Polysubstance/IVDU: patient admits to injecting 2-3 crushed Dilaudid 8mg tablets daily. Prior UDS in positive for opiates, amphetamine, benzos, cannabinoids. -counseled on cessation -recommended outpatient f/up with drug rehab center such as [facility] Hepatitis C: chronic -outpatient f/up recommended DVT Prophylaxis: ambulation, teds/SCDs; avoid chemoprophylaxis with recent surgery Disposition: The patient is cleared by hand surgery. He can likely be discharged in am when pain better controlled. Discussed Condition With Patient, Girlfriend at bedside, RN, Dr. Hensley Physician Certification 2 Midnight Certification Type: Admission for Inpatient Services Order for Inpatient Services The services are ordered in accordance with Medicare regulations or non- Medicare payer requirements, as applicable. In the case of services not specified as inpatient-only, they are appropriately provided as inpatient services in accordance with the 2-midnight benchmark. Estimated LOS (days): 2 days is the estimated time the patient will need to remain in the hospital, assuming treatment plan goals are met and no additional complications. Post-Hospital Plan: Karla Dwyer PA-C May 29, 2017 2:43 am
[2017-05-29] MEDS ORDERED: ACETAMINOPHEN/HYDROcodone 325 MG/5 MG TAB PO PRN (02:45)
[2017-05-29] MEDS: MORPHINE SULFATE 2 MG/ML INJ IV PUSH PRN ×4 (03:39→14:59)
[2017-05-29 04:00] VITALS: BP 155/75; PULSE 59; RESP 22; TEMP 96.9; O2SAT 97
--- NOTE | 2017-05-29 05:25 | MB ---
cc: KANDI SWANSON MD DATE OF CONSULTATION 05/28/2017 REASON FOR CONSULTATION Amputation right middle finger through the middle phalanx. 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 He presented to the emergency room within approximately one hour. He denies any prior significant injuries to the right hand. He did bring the amputated finger with him. PAST MEDICAL HISTORY Hepatitis C. PAST SURGICAL HISTORY Debridement of an abscess of the left arm. SOCIAL HISTORY Tobacco use - one pack per day. Denies any substance use. The patient endorses IV Dilaudid, methamphetamines and marijuana use. ALLERGIES No drug allergies. MEDICATIONS Denies. PHYSICAL EXAMINATION GENERAL: The patient is alert and oriented, in no acute distress. RIGHT HAND: Exam of the right middle finger shows complete amputation of the right middle finger through the middle phalanx. There is exposed bone. The patient is unable to flex the right middle finger. Bleeding is controlled. No other injury to any other fingers. IMAGING STUDIES X-ray shows complete amputation of the right middle finger to the middle phalanx with fracture of the remaining aspect of the middle phalanx. ASSESSMENT AND PLAN A 42-year-old male with complete amputation of the right middle finger through the middle phalanx. Treatment options discussed with the patient. Again it was discussed with the patient if he would like to proceed with reimplantation of the finger, I would recommend transfer to [place]. He declined this. He requested revision amputation. This will be done at the earliest available time. He understands he is at risk for wound complications, infection, pain, stiffness, need for additional surgeries and he elected to proceed. Kandi Swanson MD SH/SSB /12:02 AM /5:05 AM MTDD
[2017-05-29] MEDS: SODIUM CHLOR 0.9% 1000 ML INJ 1,000 ML IV SCH (06:31)
--- NOTE | 2017-05-29 07:23 | MP ---
cc: KANDI MEHTA DATE OF SURGERY 05/28/2017 PREOPERATIVE DIAGNOSIS Amputation right middle finger through the proximal middle phalanx. PROCEDURE 1. Revision amputation right middle finger through the proximal phalanx with direct closure and neurectomies. 2. 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 I was called by the emergency room. I discussed with the emergency room who discussed with the patient if he wished replantation, he should be transferred to [place]. The patient declined transfer and requested revision amputation. The risks were explained to him to include but not limited to wound complications, infection, stiffness, pain, need for additional surgeries and he elected to proceed. DESCRIPTION OF PROCEDURE The patient was identified in the preoperative holding area and the correct extremity was marked. The patient was taken to the operating room where anesthesia was induced. The right upper extremity was prepped and draped in a normal sterile fashion. The open traumatic amputation had foreign bodies which were irrigated and debrided including skin, subcutaneous tissue, muscle and bone. There was no skin coverage to close the amputation at the current level so initially the amputation was extended through the PIP joint. I attempted to close the amputation at this level, but upon placing a few sutures, there was minimal capillary refill to the flap, thus decision was made to use a saw to cut through the proximal phalanx most distal aspect. This was then again irrigated. This had good coverage of the skin. Neurectomies were performed. Hemostasis obtained. The skin was closed with chromic. The patient was placed into a soft dressing and reversed from anesthesia without any complications. Approximately 10 mL of 2% lidocaine with no epinephrine was used for local anesthesia. Kandi Mehta MD SH/DJL /11:59 PM /6:40 AM [facility]
[2017-05-29 08:00] VITALS: BP 119/71; PULSE 61; RESP 18; TEMP 97.4; O2SAT 95
[2017-05-29 08:40] LABS: BASOPHIL % 0.1 % (0.0-2.0); EOSINOPHIL % 0.1 % (0.0-4.0); HEMATOCRIT 33.9 % (39.0-51.0); HEMOGLOBIN 11.5 GM/DL (13.0-17.0); LYMPH % 10.1 % (9.0-44.0); LYMPHOCYTE # 0.8 TH/MM3 (1.0-4.8); MEAN CELL VOLUME 85.6 FL (80.0-100.0); MEAN CORPUSCULAR HEMOGLOBIN 29.1 PG (27.0-34.0); MEAN PLATELET VOLUME 7.1 FL (7.0-11.0); MONOCYTE # 0.3 TH/MM3 (0-0.9); NEUT % 85.7 % (16.0-70.0); PLATELET COUNT 349 TH/MM3 (150-450); RED BLOOD COUNT 3.96 MIL/MM3 (4.50-5.90); RED CELL DISTRIBUTION WIDTH 14.9 % (11.6-17.2); WHITE BLOOD COUNT 8.2 TH/MM3 (4.0-11.0)
[2017-05-29 08:58] LABS: BICARBONATE 26.9 MEQ/L (21.0-32.0); CALCIUM 8.8 MG/DL (8.5-10.1); CREATININE 0.81 MG/DL (0.60-1.30)
[2017-05-29] MEDS: ACETAMINOPHEN/HYDROcodone 325 MG/10 MG TAB PO PRN ×2 (08:59→14:07)
[2017-05-29] MEDS: DOCUSATE SODIUM 50 MG/SENNA 8.6 MG TAB PO SCH (08:59)
[2017-05-29] MEDS: SODIUM CHLORIDE 0.9% FLUSH 10 ML FLUSH IV FLUSH SCH (09:00)
[2017-05-29 10:13] VITALS: O2SAT 98
[2017-05-29 12:02] VITALS: BP 128/69; PULSE 73; RESP 18; TEMP 96.7; O2SAT 99
[2017-05-29 15:06] VITALS: BP 133/69; PULSE 62; RESP 18; TEMP 96.1; O2SAT 97
[2017-05-29] MEDS ORDERED: HYDR-3516 PO (15:16)
[2017-05-29] MEDS ORDERED: CEPH-460 PO (15:16)
== END 2017-05-29 16:22 | disposition home or self-care (01) | DRG 906 ==
LOC: NEPE 18:20 → NEDA 19:38 → N06B 23:11
PROVIDERS: ADMIT Hospitalist; ATTEND Hospitalist
PROC: 0PBT0ZZ Excision of Right Finger Phalanx, Open Approach (ICD-10-PCS; 2017-05-28)
PROC: 3E0T3BZ Introduction of Anesthetic Agent into Peripheral Nerves and Plexi, Percutaneous Approach (ICD-10-PCS; 2017-05-28)
PROC: 0X6Q0Z1 Detachment at Right Middle Finger, High, Open Approach (ICD-10-PCS; principal; 2017-05-28 20:49)
DX: S68.622A Partial traumatic transphalangeal amputation of right middle finger, initial encounter (principal); B19.20 Unspecified viral hepatitis C without hepatic coma; W45.8XXA Other foreign body or object entering through skin, initial encounter; Y93.H9 Activity, other involving exterior property and land maintenance, building and construction; Y92.89 Other specified places as the place of occurrence of the external cause; Y99.0 Civilian activity done for income or pay; F17.210 Nicotine dependence, cigarettes, uncomplicated; F12.90 Cannabis use, unspecified, uncomplicated
CPT/HCPCS: 64450; 73140; 80048; 85025; 85610; 85730; 88305; 90471; 90714; 96365; J0690; J1100; J2270; J2370; J2405; J3010; J7030; J7120

== ENCOUNTER 2017-10-10 16:24 | Emergency (ER) | payer SELFPAY ==
[~2017-10-10] VITALS: Ht 182.9 cm; Wt 72.0 kg
[~2017-10-10 16:24] MED LIST changes: -BACT800T5 PO; +CEPH-460 PO; -CEPH500T PO; -DEXAMETHASONE SOD PHOS 4 MG/ML VIAL IV ONE; -GLYCOPYRROLATE 1 MG/5 ML SYRINGE IV PUSH ONE; +HYDR-3516 PO; -LACTATED RINGER'S 1000 ML INJ 1,000 ML IV ONE; -LIDOCAINE HCL 1% PF 5 ML SYRINGE OTHER ONE; -ONDANSETRON HCL 4 MG/2 ML VIAL IV PUSH ONE; -PHENYLEPH/NS 1000 MCG/10 ML SYR IV ONE; -PROPOFOL 200 MG/20 ML AMP IV ONE; -ePHEDrine/NS 25 MG/5 ML SYRINGE IV ONE
[2017-10-10 16:27] VITALS: BP 134/71; PULSE 87; RESP 16; TEMP 97.7; O2SAT 97
[2017-10-10] MEDS ORDERED: SODIUM CHLOR 0.9% 1000 ML INJ 1,000 ML IV ONE (16:29)
[2017-10-10] MEDS ORDERED: SODIUM CHLORIDE 0.9% FLUSH 10 ML FLUSH IVF PRN (16:30)
[2017-10-10 16:33] VITALS: RESP 14; O2SAT 93
--- NOTE | 2017-10-10 16:35 | PD ---
HPI Chief Complaint: OD/ Ingestion Time Seen by Provider: 16:29 Travel History International Travel<30 days: No Contact w/Intl Traveler<30days: No Traveled to known affect area: No History of Present Illness HPI 42-year-old male patient with history of polysubstance abuse, admits that he had been taking cocaine and using heroin all day, became unresponsive, apneic, and CPR was initiated on scene by his friend, called EMS and EMS found him unresponsive, gave Narcan and he is completely awake now. He denies any other issues. He denies other illicit drug use. Modifying Factors: None Associated Signs & Symptoms: Heroin overdose Risk Factors: None PFSH Past Medical History Blood Disorders: Yes (HEP C) Cancer: No Cardiovascular Problems: No Cerebrovascular Accident: No Diminished Hearing: No Endocrine: No Gastrointestinal Disorders: No Genitourinary: No Hepatitis: Yes (hep C ) Musculoskeletal: No Neurologic: No Psychiatric: No Reproductive: No Respiratory: No Immunizations Current: Yes Migraines: No Seizures: No Past Surgical History Abdominal Surgery: No Cardiac Surgery: No Ear Surgery: No Endocrine Surgery: No Genitourinary Surgery: No Gynecologic Surgery: No Oral Surgery: No Thoracic Surgery: No Other Surgery: No Social History Alcohol Use: No Tobacco Use: Yes (1 PPD) Substance Use: Yes (IV Dilaudid, meth and marijuana ) Allergies-Medications (Allergen,Severity, Reaction): Coded Allergies: No Known Allergies (Verified Allergy, Unknown, 10/10/17) Reported Meds & Prescriptions Reported Meds & Active Scripts Active Keflex (Cephalexin) 500 Mg Capsule 500 Mg PO QID 5 Days Hydrocodone-Acetamin 5-325 mg (Hydrocodone/Acetaminophen) 5 Mg-325 Mg Tablet 1 Tab PO Q4H PRN Review of Systems Except as stated in HPI: all other systems reviewed are Neg Physical Exam Narrative GENERAL: Well-developed middle-age male patient currently in mild distress. Awake and oriented 3. SKIN: Focused skin assessment warm/dry. HEAD: Atraumatic. Normocephalic. EYES: Pupils equal and round. No scleral icterus. No injection or drainage. ENT: No nasal bleeding or discharge. Mucous membranes pink and moist. NECK: Trachea midline. No JVD. CARDIOVASCULAR: Regular rate and rhythm. No murmur appreciated. RESPIRATORY: No accessory muscle use. Clear to auscultation. Breath sounds equal bilaterally. GASTROINTESTINAL: Abdomen soft, non-tender, nondistended. Hepatic and splenic margins not palpable. MUSCULOSKELETAL: No obvious deformities. No clubbing. No cyanosis. No edema. NEUROLOGICAL: Awake and alert. No obvious cranial nerve deficits. Motor grossly within normal limits. Normal speech. PSYCHIATRIC: Appropriate mood and affect; insight and judgment normal. Data Data Last Documented VS Vital Signs Date Time Temp Pulse Resp B/P (MAP) Pulse Ox O2 Delivery O2 Flow Rate FiO2 10/10/17 16:33 14 93 Nasal Cannula 2.00 10/10/17 16:27 97.7 87 134/71 (92) Orders Orders Electrocardiogram (10/10/17 16:29) Complete Blood Count With Diff (10/10/17 16:29) Comprehensive Metabolic Panel (10/10/17 16:29) Iv Access Insert/Monitor (10/10/17 16:29) Ecg Monitoring (10/10/17 16:29) Oximetry (10/10/17 16:29) Sodium Chloride 0.9% Flush (Ns Flush) (10/10/17 16:30) Sodium Chlor 0.9% 1000 Ml Inj (Ns 1000 M (10/10/17 16:29) Drug Screen, Random Urine (10/10/17 16:29) Alcohol (Ethanol) (10/10/17 16:29) Salicylates (Aspirin) (10/10/17 16:29) Tylenol (Acetaminophen) (10/10/17 16:29) Labs Laboratory Tests Test 10/10/17 16:39 10/10/17 16:40 10/10/17 17:23 White Blood Count 6.1 TH/MM3 Red Blood Count 4.08 MIL/MM3 Hemoglobin 11.9 GM/DL Hematocrit 35.1 % Mean Corpuscular Volume 85.9 FL Mean Corpuscular Hemoglobin 29.1 PG Mean Corpuscular Hemoglobin Concent 33.8 % Red Cell Distribution Width 14.7 % Platelet Count 308 TH/MM3 Mean Platelet Volume 7.6 FL Neutrophils (%) (Auto) 37.7 % Lymphocytes (%) (Auto) 47.9 % Monocytes (%) (Auto) 9.5 % Eosinophils (%) (Auto) 3.9 % Basophils (%) (Auto) 1.0 % Neutrophils # (Auto) 2.3 TH/MM3 Lymphocytes # (Auto) 2.9 TH/MM3 Monocytes # (Auto) 0.6 TH/MM3 Eosinophils # (Auto) 0.2 TH/MM3 Basophils # (Auto) 0.1 TH/MM3 CBC Comment DIFF FINAL Differential Comment MDM Medical Decision Making Medical Screen Exam Complete: Yes Emergency Medical Condition: Yes Medical Record Reviewed: Yes Interpretation(s) EKG shows NSR, no ST elevation or depression, and no arrhythmias. No significant T-wave inversions. Laboratory Tests Test 10/10/17 16:39 10/10/17 16:40 10/10/17 17:23 Red Blood Count 4.08 MIL/MM3 (4.50-5.90) Hemoglobin 11.9 GM/DL (13.0-17.0) Hematocrit 35.1 % (39.0-51.0) Lymphocytes (%) (Auto) 47.9 % (9.0-44.0) Monocytes (%) (Auto) 9.5 % (0.0-8.0) Differential Diagnosis Heroin overdose Narrative Course Patient's vital signs are stable in the ER, he is currently awake, alert, oriented 3. I have talked to him about what happened and the fact that he almost today, his friend had saved his life by doing CPR and calling EMS who gave him Narcan. Patient states understanding, states he does not want to do heroin again. I have also talked him about the fact that the Narcan will run out before the heroin and he is likely to go back into overdose after a few hours and that he needs to be observed in the ER for 6 hours in order to make sure that the hairline is going out of his system. Initial lab work had been sent. IV fluids were given. At 6 PM, patient is caught attempting to elope from the ER. We stopped him, and taught him further regarding the risk of additional overdose even if he does not take any more drugs. Patient states understanding, but states that he still wants to leave, his right is here. I have taught him about the fact that he can from further overdose even if he does not take any other drugs. He is currently awake, alert, oriented, able to make his own decisions, and at this point will be leaving AGAINST MEDICAL ADVICE. He should stop taking further drugs. He should be watched with a friend tonherber, and they should call EMS right away for any further issues. AMA: The risks of leaving against medical advice without further evaluation treatment were discussed with the patient. These risks include cardiac dysfunction, cardiac dysrhythmia, possible heart attack, possible stroke or . The patient indicated understanding of these risks and appeared to have the capacity to make this decision. Diagnosis Primary Impression: Heroin overdose Disposition: 07 AGAINST MEDICAL ADVICE Condition: Stable Armen Uribe MD October 10, 2017 16:35
[2017-10-10 17:06] LABS: AUTOMATED NEUTROPHIL # 2.3 TH/MM3 (1.8-7.7); BASOPHIL # 0.1 TH/MM3 (0-0.2); EOSINOPHIL # 0.2 TH/MM3 (0-0.4); EOSINOPHIL % 3.9 % (0.0-4.0); HEMATOCRIT 35.1 % (39.0-51.0); HEMOGLOBIN 11.9 GM/DL (13.0-17.0); LYMPH % 47.9 % (9.0-44.0); LYMPHOCYTE # 2.9 TH/MM3 (1.0-4.8); MEAN CELL VOLUME 85.9 FL (80.0-100.0); MEAN CORPUSCULAR HEMOGLOBIN 29.1 PG (27.0-34.0); MEAN CORPUSCULAR HGB CONC 33.8 % (32.0-36.0); MEAN PLATELET VOLUME 7.6 FL (7.0-11.0); MONO % 9.5 % (0.0-8.0); MONOCYTE # 0.6 TH/MM3 (0-0.9); NEUT % 37.7 % (16.0-70.0); PLATELET COUNT 308 TH/MM3 (150-450); RED BLOOD COUNT 4.08 MIL/MM3 (4.50-5.90); RED CELL DISTRIBUTION WIDTH 14.7 % (11.6-17.2); WHITE BLOOD COUNT 6.1 TH/MM3 (4.0-11.0)
[2017-10-10 18:32] LABS: BLOOD UREA NITROGEN 20 MG/DL (7-18)
[2017-10-10 18:33] LABS: ALBUMIN 3.2 GM/DL (3.4-5.0); ALKALINE PHOSPHATASE 121 U/L (45-117); ALT (GPT) 49 U/L (12-78); AST (GOT) 38 U/L (15-37); BICARBONATE 28.7 MEQ/L (21.0-32.0); CALCIUM 7.9 MG/DL (8.5-10.1); CHLORIDE 109 MEQ/L (98-107); CREATININE 0.95 MG/DL (0.60-1.30); GLOMERULAR FILTRATION RATE 88 ML/MIN (>89); GLUCOSE,RANDOM 81 MG/DL (74-106); SODIUM (NA) 145 MEQ/L (136-145); TOTAL BILIRUBIN ADULT 0.2 MG/DL (0.2-1.0); TOTAL PROTEIN 7.1 GM/DL (6.4-8.2)
[2017-10-10 18:34] LABS: ACETAMINOPHEN LESS THAN 2.0 MCG/ML (10.0-30.0)
--- NOTE | 2017-10-11 21:20 | EKG ---
Date Performed: 10/10/2017 Time Performed: 16:51:16 PTAGE: 42 years EKG: Sinus rhythm POSSIBLE LEFT ATRIAL ENLARGEMENT POSSIBLE RIGHT VENTRICULAR CONDUCTION DELAY BORDERLINE ECG PREVIOUS TRACING : 08/01/2010 09.17 Since the previous tracing, no significant change noted DOCTOR: Tanner Parrish Interpretating Date/Time 10/11/2017 21:18:06
== END 2017-10-10 18:23 | disposition left against medical advice (07) ==
LOC: NEPE 16:24
DX: T40.1X1A Poisoning by heroin, accidental (unintentional), initial encounter (principal); R94.31 Abnormal electrocardiogram [ECG] [EKG]; F17.200 Nicotine dependence, unspecified, uncomplicated; Z86.19 Personal history of other infectious and parasitic diseases; Z53.29 Procedure and treatment not carried out because of patient's decision for other reasons
CPT/HCPCS: 80053; 80307; 85025; 93005; 96360; 99284; J7030

== ENCOUNTER 2017-12-08 10:49 | Inpatient (IN) ==
[2017-12-08] MEDS ORDERED: Acetaminophen 325 MG Tablet PO ONE (14:52)
[2017-12-08] MEDS ORDERED: Sod Chloride 0.9% Inj 1,000 ML IV.SIG ONE (14:55)
--- NOTE | 2017-12-08 15:07 | ED ---
HPI General Chief complaint: Skin/Abscess/Foreign Body Stated complaint: Medical Time Seen by Provider: 12/08/17 14:52 Source: patient Mode of arrival: ambulatory Limitations: no limitations History of Present Illness HPI narrative: 42-year-old male with PMH of IVDA, last use today, presents the ED for evaluation of 3 day history of painful, reddened area of the right side of the neck. Pain is throbbing, rated 7/10. No alleviating or exacerbating factors reported. Patient states that he injected Subutex in the area 3 days ago. He endorses chills. Denies fevers, nausea, vomiting, history of MRSA headaches, dizziness, chest pain, palpitations, shortness of breath, difficulty swallowing. He denies any known foreign body in the area. He is a current smoker. Takes no daily medications. No treatment attempted before arrival. Related Data Home Medications Medication Instructions Recorded Confirmed No Known Home Medications 12/08/17 12/08/17 Allergies Allergy/AdvReac Type Severity Reaction Status Date / Time No Known Allergies Allergy Verified 12/08/17 15:25 Review of Systems Except as stated in HPI: all other systems reviewed are negative [facility] Medical History Medical History IV drug abuse (Acute) Surgical History Surgical History No history of previous surgery (Acute) Social History Social History Substance History: Active Abuse Second Hand Smoke Exposure: Yes Smoking Status: Heavy tobacco smoker Tobacco Type: Cigarettes How Often Do You Have a Drink Containing Alcohol: Never Recent Travel in [facility] within the Last 8 Weeks: No Recent Out of Country Travel within the Last 8 Weeks: No Exam Narrative Exam Narrative: GENERAL: Well-nourished, well-developed white male no acute distress. SKIN: Warm and dry. SKIN: There is an indurated area in the right anterior neck which measures about 8 cm in diameter. It is fluctuant but there is no pointing or drainage. There is a zone of inflammation around it but no lymphangitis. HEAD: Normocephalic. Atraumatic. EYES: No scleral icterus. No injection or drainage. PERRLA. EOMI. ENT: Pearly de [place] rosa tympanic membranes bilaterally. Nasal mucosa is moist. Oropharynx without erythema, edema or exudate. Airway patent. Uvula midline. NECK: Supple, trachea midline. No JVD. + right sided lymphadenopathy. CARDIOVASCULAR: Regular rate and rhythm without murmurs, gallops, or rubs. RESPIRATORY: Breath sounds clear and equal bilaterally. No accessory muscle use. GASTROINTESTINAL: Abdomen soft, non-tender, nondistended. + Bowel sounds MUSCULOSKELETAL: No cyanosis, or edema. Full, active range of motion. Strength 5/5. Neurovascularly intact. BACK: Nontender without obvious deformity. No CVA tenderness. Course Initial Documented Vital Signs Temperature 99.2 F 12/08/17 11:17 Respiratory Rate 16 12/08/17 11:17 Blood Pressure 128/60 12/08/17 11:17 Pulse Oximetry 96 12/08/17 11:17 Last Documented Vital Signs Temperature 99.2 F 12/08/17 11:17 Pulse Rate 76 12/08/17 16:00 Respiratory Rate 16 12/08/17 15:20 Blood Pressure 122/70 12/08/17 15:20 Pulse Oximetry 92 L 12/08/17 16:00 Medical Decision Making MDM Narrative Medical decision making narrative: 42-year-old male with PMH of IVDA presents the ED for evaluation of abscess of the right side of the neck 3 days. He endorses chills has not measured a fever at home. Vitals reviewed. On physical exam the airway is patent. There is a approximate 7 x 8 cm area of induration on the right anterior lateral neck. No fluctuance noted. IV was established. Patient was administered 1 L normal saline, 650 Tylenol by mouth. Blood cultures were obtained. Patient was administered IV Zosyn and vancomycin. Lactate normal. No leukocytosis. CT reveals loculated abscess of the right side of the neck. Plan for admission with the ENT consult. I discussed this with the patient who is agreeable. Consult placed with Dr. Thomas, on-call. I spoke with Dr. Wick who agrees to accept the patient to the medicine service. Please see medicine and ENT notes for disposition. Differential Diagnosis Differential Diagnosis: Cellulitis versus abscess versus retained foreign body versus sepsis versus other Lab Data Result diagrams: 12/08/17 15:38 12/08/17 15:38 Lab Results 12/08/17 12/08/17 12/08/17 Range/Units 15:38 15:38 15:38 WBC 8.2 (4.0-11.0) th/mm3 RBC 4.60 (4.50-5.90) mil/mm3 Hgb 13.2 (13.0-17.0) gm/dL Hct 39.0 (39.0-51.0) % MCV 84.7 (80.0-100.0) fL MCH 28.6 (27.0-34.0) pg MCHC 33.8 (32.0-36.0) % RDW 14.6 (11.6-17.2) % Plt Count 279 (150-450) th/mm3 MPV 7.5 (7.0-11.0) fL Neut % (Auto) 71.9 H (16.0-70.0) % Lymph % (Auto) 18.0 (9.0-44.0) % [place] % (Auto) 6.9 (0.0-8.0) % Eos % (Auto) 2.6 (0.0-4.0) % Baso % (Auto) 0.6 (0.0-2.0) % Neut # (Auto) 5.9 (1.8-7.7) th/mm3 Lymph # (Auto) 1.5 (1.0-4.8) th/mm3 [place] # (Auto) 0.6 (0.0-0.9) th/mm3 Eos # (Auto) 0.2 (0.0-0.4) th/mm3 Baso # (Auto) 0.0 (0.0-0.2) th/mm3 WBC Differential . Differential Comment Auto diff final PT 10.7 (9.8-11.6) sec INR 1.1 Ratio APTT 31.9 H (24.3-30.1) sec Sodium 136 (136-145) meq/L Potassium 4.1 (3.5-5.1) meq/L Chloride 99 (98-107) meq/L Carbon Dioxide 28.3 (21.0-32.0) meq/L Anion Gap 9 (5-15) meq/L BUN 14 (7-18) mg/dL Creatinine 0.97 (0.60-1.30) mg/dL Estimated GFR 86 L (>89) mL/min Random Glucose 97 (74-106) mg/dL Lactic Acid (0.4-2.0) mmol/L Calcium 9.5 (8.5-10.1) mg/dL Total Bilirubin 0.5 (0.2-1.0) mg/dL AST 25 (15-37) U/L ALT 30 (12-78) U/L Alkaline Phosphatase 110 (45-117) U/L Total Protein 8.4 H (6.4-8.2) g/dL Albumin 3.4 (3.4-5.0) g/dL 12/08/17 Range/Units 15:38 WBC (4.0-11.0) th/mm3 RBC (4.50-5.90) mil/mm3 Hgb (13.0-17.0) gm/dL Hct (39.0-51.0) % MCV (80.0-100.0) fL MCH (27.0-34.0) pg MCHC (32.0-36.0) % RDW (11.6-17.2) % Plt Count (150-450) th/mm3 MPV (7.0-11.0) fL Neut % (Auto) (16.0-70.0) % Lymph % (Auto) (9.0-44.0) % [place] % (Auto) (0.0-8.0) % Eos % (Auto) (0.0-4.0) % Baso % (Auto) (0.0-2.0) % Neut # (Auto) (1.8-7.7) th/mm3 Lymph # (Auto) (1.0-4.8) th/mm3 [place] # (Auto) (0.0-0.9) th/mm3 Eos # (Auto) (0.0-0.4) th/mm3 Baso # (Auto) (0.0-0.2) th/mm3 WBC Differential Differential Comment PT (9.8-11.6) sec INR Ratio APTT (24.3-30.1) sec Sodium (136-145) meq/L Potassium (3.5-5.1) meq/L Chloride (98-107) meq/L Carbon Dioxide (21.0-32.0) meq/L Anion Gap (5-15) meq/L BUN (7-18) mg/dL Creatinine (0.60-1.30) mg/dL Estimated GFR (>89) mL/min Random Glucose (74-106) mg/dL Lactic Acid 1.3 (0.4-2.0) mmol/L Calcium (8.5-10.1) mg/dL Total Bilirubin (0.2-1.0) mg/dL AST (15-37) U/L ALT (12-78) U/L Alkaline Phosphatase (45-117) U/L Total Protein (6.4-8.2) g/dL Albumin (3.4-5.0) g/dL Imaging Data Radiologist's impression: Soft Tissue Neck CT 12/08/17 14:53 CONCLUSION: 1. Significant swelling in the right lower neck and focal abscess and possibly multiple small lymph nodes surrounding it extending to right lower neck posteriorly. Discharge Plan Discharge Disposition Patient Disposition: Discharge Home Discharge Condition Condition: Stable Discharge Details Diagnosis: Abscess of neck Physicians Team ED Provider: Mark Caputo ED Midlevel Provider: Kiara Dale Primary Care Provider: Primary Care Janet Rider Rxs /Orders / Referrals /Forms Prescriptions: No Action No Known Home Medications RF: 0 Discharge Interventions Interventions: Vital Signs Last Done: 12/08/17 17:13 Status ED Status: With Doctor
[2017-12-08 16:10] LABS: Activated Partial Thrombo Time 31.9 sec (24.3-30.1); INR 1.1 Ratio; Prothrombin Time 10.7 sec (9.8-11.6)
[2017-12-08 16:17] LABS: Baso % (Auto) 0.6 % (0.0-2.0); Eos # (Auto) 0.2 th/mm3 (0.0-0.4); Eos % (Auto) 2.6 % (0.0-4.0); Hemoglobin 13.2 gm/dL (13.0-17.0); Lymph # (Auto) 1.5 th/mm3 (1.0-4.8); Mean Corpuscular HGB Conc 33.8 % (32.0-36.0); Mean Corpuscular Hemoglobin 28.6 pg (27.0-34.0); Mean Corpuscular Volume 84.7 fL (80.0-100.0); Mean Platelet Volume 7.5 fL (7.0-11.0); Mono # (Auto) 0.6 th/mm3 (0.0-0.9); Mono % (Auto) 6.9 % (0.0-8.0); Neut # (Auto) 5.9 th/mm3 (1.8-7.7); Neut % (Auto) 71.9 % (16.0-70.0); Platelet Count 279 th/mm3 (150-450); Red Cell Distribution Width 14.6 % (11.6-17.2); White Blood Count 8.2 th/mm3 (4.0-11.0)
[2017-12-08 16:22] LABS: Albumin 3.4 g/dL (3.4-5.0); Anion Gap 9 meq/L (5-15); Aspartate Aminotransferase 25 U/L (15-37); Blood Urea Nitrogen 14 mg/dL (7-18); Calcium 9.5 mg/dL (8.5-10.1); Carbon Dioxide 28.3 meq/L (21.0-32.0); Chloride 99 meq/L (98-107); Glomerular Filtration Rate 86 mL/min (>89); Glucose,Random 97 mg/dL (74-106); Potassium 4.1 meq/L (3.5-5.1); Sodium 136 meq/L (136-145)
[2017-12-08 16:23] LABS: Alanine Aminotransferase 30 U/L (12-78)
[2017-12-08 16:25] LABS: Alkaline Phosphatase 110 U/L (45-117); Total Protein 8.4 g/dL (6.4-8.2)
--- NOTE | 2017-12-08 16:45 | CT ---
EXAM DATE: 12/08/2017 4:34 PM EDT AGE/SEX: 42 years / Male INDICATIONS: Right sided neck swelling; history of IV drug abuse. CLINICAL DATA: This is the patient's initial encounter. Patient reports that signs and symptoms have been present for 1 day and indicates a pain score of 7/10. MEDICAL/SURGICAL HISTORY: . IV drug abuse None. RADIATION DOSE: 14.98 CTDI (mGy) COMPARISON: No prior exams available for comparison. TECHNIQUE: Helical acquisition was performed using a multirow detector CT scanner without contrast. Using automated exposure control and adjustment of the mA and/or kV according to patient size, radiat ion dose was kept as low as reasonably achievable to obtain optimal diagnostic quality images. DICOM format image data is available electronically for review and comparison. FINDINGS: There is significant subcutaneous edema in the patient's right side of the neck with one focal area o f ringlike enhancement measures 1.6 cm in size in right lower neck highly suspicious for focal absces s. Surrounding it there are multiple nodular densities may represent lymph nodes and there are multip le other pockets of abscess difficult to accurately characterize due to significant edema and swellin g. CONCLUSION: 1. Significant swelling in the right lower neck and focal abscess and possibly multiple small lymph nodes surrounding it extending to right lower neck posteriorly. Electronically signed by: Celia Nuñez MD 12/08/2017 4:44 PM EDT
[2017-12-08] MEDS ORDERED: Vancomycin Inj 1 GM/200 ML PIGGYBACK IV.SIG ONE (17:24)
[2017-12-08] MEDS ORDERED: Ketorolac Inj 30 MG/ML (IVP) Vial IV.PUSH PRN (17:25)
--- NOTE | 2017-12-08 17:37 | P.HPIM ---
History of Present Illness Primary Care Physician: No Primary Care Physician Chief Complaint: neck infection History of Present Illness: patient is a 42 y/o male, IV drug abuse, who presented to ER with swelling and pain to the right neck. he says that he tried to inject the IV drug last week and ' he missed'. after which he started to have pain and swelling of the right neck. he denies any fever,chills. pain was mild at the time of my evaluation. Inpatient Certification: I certify that the inpatient services were ordered in accordance with Medicare regulations governing the order. This includes certification that hospital inpatient services are reasonable and necessary and in the case of services not specified as inpatient-only under 42 CFR 419.22(n), that they are appropriately provided as inpatient services in accordance to with the 2-midnight benchmark under 43 CFR 412.3(e) Estimated Total Length of Stay (Days): 2 Plans for Post Hospital Care: Home Review of Systems All other systems reviewed negative except as stated in HPI [facility] - History History Provided By: Patient - Medical History Medical History: Medical History (Last Updated 12/08/17 @ 15:21 by Ann Chow) IV drug abuse - Surgical History Surgical History: Surgical History (Last Updated 12/08/17 @ 15:21 by Ann Chow) No history of previous surgery - Tobacco History Second Hand Smoke Exposure: Yes Tobacco Use In Past 30 Days: Yes Smoking Status: Heavy tobacco smoker Tobacco Type: Cigarettes - Alcohol History How Often Do You Have a Drink Containing Alcohol: Never - Substance Use History Substance History: Active Abuse - Substance Use Type Opiates Status: Active Route Used: Intravenously Reason for Use: Get High - Travel History Recent Travel in the [place] Within the Last 8 Weeks: No Recent Travel Out of the Country Within the Last 8 Weeks: No - Immunization History Tetanus Immunization: >5 Years Hx Influenza Vaccine This Season: No Medications and Allergies Active Medications: Active Medications Acetaminophen (Tylenol) 650 mg PO Q4H PRN PRN Reason: fever Sodium Chloride (Ns Inj) 1,000 mls @ 125 mls/hr IV.CONT .Q8H [facility] Pharmacy Profile Note (Vancomycin Consult Pharmacy) 0 mls @ 0 mls/hr OTHER UNSCH [facility] Vancomycin/Sodium Chloride (Vancomycin Inj) 1 gm in 200 mls @ 200 mls/hr IV.SIG ONCE ONE Stop: 12/08/17 18:23 Piperacillin/Tazobactam/Dextrose (Zosyn 3.375 Gm Premix) 50 mls @ 100 mls/hr IV.SIG Q6H [facility] Ketorolac Tromethamine (Toradol Inj) 15 mg IV.PUSH Q6H PRN PRN Reason: acute pain Allergies Allergy/AdvReac Type Severity Reaction Status Date / Time No Known Allergies Allergy Verified 12/08/17 15:25 Home Medications Medication Instructions Recorded Confirmed Type No Known Home Medications 12/08/17 12/08/17 History Exam Vital signs: Vital Signs 12/08/17 11:17 12/08/17 15:20 12/08/17 16:00 Temperature 99.2 F Pulse Rate 78 76 Respiratory Rate 16 16 Blood Pressure 128/60 122/70 Pulse Oximetry 96 92 L 92 L 12/08/17 17:13 Temperature Pulse Rate 85 Respiratory Rate 16 Blood Pressure 117/58 L Pulse Oximetry 99 Intake & Output 12/07/17 12/08/17 12/08/17 18:59 06:59 18:59 Weight 72.575 kg - Constitutional no acute distress - Routine HEENT Exam Head: Present: normocephalic - Routine Neck Exam Comments: swelling/ erythema and mild tenderness over the right neck. - Routine Respiratory Exam Present: CTA bilaterally - Routine Cardiovascular Exam Present: RRR - Routine Abdominal Exam Present: soft - Routine Extremities Exam Comments: no pedal edema. - Routine Neurological Exam Present: alert, oriented X3 Results - Labs CBC & Chem 7: 12/08/17 15:38 12/08/17 15:38 Labs: Short CBC 12/08/17 Range/Units 15:38 WBC 8.2 (4.0-11.0) th/mm3 Hgb 13.2 (13.0-17.0) gm/dL Hct 39.0 (39.0-51.0) % Plt Count 279 (150-450) th/mm3 BMP 12/08/17 15:38 Sodium 136 Potassium 4.1 Chloride 99 Carbon Dioxide 28.3 BUN 14 Creatinine 0.97 Calcium 9.5 Liver Function 12/08/17 Range/Units 15:38 Total Bilirubin 0.5 (0.2-1.0) mg/dL AST 25 (15-37) U/L ALT 30 (12-78) U/L Alkaline Phosphatase 110 (45-117) U/L Albumin 3.4 (3.4-5.0) g/dL - Imaging Impressions Soft Tissue Neck CT 12/08/17 14:53 CONCLUSION: 1. Significant swelling in the right lower neck and focal abscess and possibly multiple small lymph nodes surrounding it extending to right lower neck posteriorly. Caprini VTE Risk Assessment Caprini VTE Risk Assessment: No/Low Risk (score <= 1) Caprini Risk Assessment Model: Point Value = 1 Point Value = 2 Point Value = 3 Point Value = 5 Age 41-60 Minor surgery BMI > 25 kg/m2 Swollen legs Varicose veins or History of unexplained or recurrent spontaneous Oral contraceptives or hormone replacement Sepsis (< 1 month) Serious lung disease, including pneumonia (< 1 month) Abnormal pulmonary function Acute myocardial infarction Congestive heart failure (< 1 month) History of inflammatory bowel disease Medical patient at bed rest Age 61-74 Arthroscopic surgery Major open surgery (> 45 min) Laparoscopic surgery (> 45 min) Malignancy Confined to bed (> 72 hours) Immobilizing plaster cast Central venous access Age >= 75 History of VTE Family history of VTE Factor V Leiden Prothrombin [id number] Lupus anticoagulant Anticardiolipin antibodies Elevated serum homocysteine Heparin-induced thrombocytopenia Other congenital or acquired thrombophilia Stroke (< 1 month) Elective arthroplasty Hip, pelvis, or leg fracture Acute spinal cord injury (< 1 month) Prophylaxis Regimen: Total Risk Factor Score Risk Level Prophylaxis Regimen 0-1 Low Early ambulation 2 Moderate Order ONE of the following: *Sequential Compression Device (SCD) *Heparin 5000 units SQ BID 3-4 Higher Order ONE of the following medications: *Heparin 5000 units SQ TID *Enoxaparin/Lovenox 40 mg SQ daily (WT < 150 kg, CrCl > 30 mL/min) *Enoxaparin/Lovenox 30 mg SQ daily (WT < 150 kg, CrCl > 10-29 mL/min) *Enoxaparin/Lovenox 30 mg SQ BID (WT < 150 kg, CrCl > 30 mL/min) AND/OR *Sequential Compression Device (SCD) 5 or more Highest Order ONE of the following medications: *Heparin 5000 units SQ TID (Preferred with Epidurals) *Enoxaparin/Lovenox 40 mg SQ daily (WT < 150 kg, CrCl > 30 mL/min) *Enoxaparin/Lovenox 30 mg SQ daily (WT < 150 kg, CrCl > 10-29 mL/min) *Enoxaparin/Lovenox 30 mg SQ BID (WT < 150 kg, CrCl > 30 mL/min) AND *Sequential Compression Device (SCD) Assessment and Plan - Plan A/P - abscess of the right neck with history of IV drug abuse. start on broad spectrum IV antibiotics and follow the cultures. continue with pain control. ENT consulted. advised to stop using illicit drugs. Discussed Condition With: ER and the patient.
[2017-12-08 17:51] LABS: Amphetamine Screen,Urine Neg (Neg); Barbiturate Screen,Urine Pos (Neg); Bilirubin,Urine Negative (Negative); Cannabinoid Screen,Urine Neg (Neg); Clarity,Urine Clear (Clear); Cocaine Screen,Urine Pos (Neg); Color,Urine Yellow (Yellw/Straw); Glucose,Urine (UA) Negative (Negative); Leukocyte Esterase,Urine Negative (Negative); Mucus,Urine Few /lpf (Occasional); Nitrite,Urine Negative (Negative); Specific Gravity,Urine 1.027 (1.002-1.035)
[2017-12-08 17:53] LABS: Opiate Screen,Urine Pos (Neg)
[2017-12-08] MEDS ORDERED: Vancomycin Consult Pharmacy 1 EACH OTHER SCH (18:00)
[2017-12-08] MEDS ORDERED: Vancomycin Inj 1,000 MG in Sodium Chlor 0.9% Inj 250 ML IV.SIG ONE (20:00)
[2017-12-08] MEDS: Piperacil/Tazo 3.375 GM Premix 50 ML IV.SIG SCH (21:02)
[2017-12-08] MEDS: Acetaminophen 325 MG Tablet PO PRN (21:44)
[2017-12-08] MEDS: Sod Chloride 0.9% Inj 1,000 ML IV.CONT SCH (23:57)
[2017-12-09] MEDS: Piperacil/Tazo 3.375 GM Premix 50 ML IV.SIG SCH ×3 (03:23→19:52)
[2017-12-09] MEDS: Vancomycin Inj 1,250 MG in Sodium Chlor 0.9% Inj 250 ML IV.SIG SCH ×2 (06:05→20:33)
[2017-12-09] MEDS: Acetaminophen 325 MG Tablet PO PRN (06:14)
[2017-12-09] MEDS ORDERED: Dexamethasone Inj 20 MG/5 ML Vial IV.PUSH ONE ×2 (08:45)
[2017-12-09] MEDS ORDERED: Phenylephrine/NS 1000 MCG/10ML Syringe IV.PUSH ONE (12:00)
[2017-12-09] MEDS ORDERED: Ketorolac Inj 30 MG/ML (IVP) Vial IV.PUSH ONE (12:00)
[2017-12-09] MEDS ORDERED: Lidocaine PF 1% Inj 5 ML Syringe INFILTRATN ONE (12:00)
[2017-12-09] MEDS: Sod Chloride 0.9% Inj 1,000 ML IV.CONT SCH ×2 (14:13→14:14)
--- NOTE | 2017-12-09 15:15 | P.PNIM ---
Subjective Interval history: Patient reports that pain in right neck continues. Denies any chest pain shortness of breath. Denies nausea vomiting. Physical Exam Vital signs: Vital Signs 12/08/17 15:20 12/08/17 16:00 12/08/17 17:13 Temperature Pulse Rate 78 76 85 Respiratory Rate 16 16 Blood Pressure 122/70 117/58 L Pulse Oximetry 92 L 92 L 99 12/08/17 20:00 12/09/17 00:19 12/09/17 04:00 Temperature 102.1 F H 99.3 F 100.4 F H Pulse Rate 75 73 70 Respiratory Rate 16 16 16 Blood Pressure 121/63 115/66 126/71 Pulse Oximetry 94 L 94 L 94 L 12/09/17 08:00 12/09/17 12:00 Temperature 97.5 F L 97.9 F Pulse Rate 63 67 Respiratory Rate 16 14 Blood Pressure 107/59 L 116/67 Pulse Oximetry 97 97 Intake & Output 12/08/17 12/09/17 12/09/17 18:59 06:59 18:59 Intake Total 100 / 100 2562.5 / 2562.5 Balance 100 / 100 2562.5 / 2562.5 Weight 72.575 kg Intake: IV 100 / 100 2562.5 / 2562.5 NS Inj 1,000 ML @ 125 mls/hr IV 1000 / 1000 .CONT .Q8H [facility] Rx#:[id number] Zosyn 3.375 GM Premix 50 ML @ 100 / 100 50 / 50 100 mls/hr IV.SIG Q6H [facility] Rx#: [id number] Vancomycin Inj 1,250 MG In NS 262.5 / 262.5 Inj 250 ML @ 250 mls/hr IV.SIG Q12H [facility] Rx#:[id number] Narrative: GENERAL: Patient sitting up in bed. Appears comfortable. SKIN: Warm and dry. HEAD: Normocephalic. EYES: No scleral icterus. No injection or drainage. NECK: trachea midline. Large right neck abscess with erythema. CARDIOVASCULAR: Regular rate and rhythm without murmurs, gallops, or rubs. RESPIRATORY: Breath sounds equal bilaterally. No accessory muscle use. GASTROINTESTINAL: Abdomen soft, non-tender, nondistended. MUSCULOSKELETAL: No cyanosis, or edema. BACK: Nontender without obvious deformity. No CVA tenderness. Results - Labs CBC & Chem 7: 12/08/17 15:38 12/08/17 15:38 Laboratory Results - last 24 hr 12/08/17 12/08/17 12/08/17 15:38 15:38 15:38 WBC 8.2 RBC 4.60 Hgb 13.2 Hct 39.0 MCV 84.7 MCH 28.6 MCHC 33.8 RDW 14.6 Plt Count 279 MPV 7.5 Neut % (Auto) 71.9 H Lymph % (Auto) 18.0 [place] % (Auto) 6.9 Eos % (Auto) 2.6 Baso % (Auto) 0.6 Neut # (Auto) 5.9 Lymph # (Auto) 1.5 [place] # (Auto) 0.6 Eos # (Auto) 0.2 Baso # (Auto) 0.0 WBC Differential . Differential Comment Auto diff final PT 10.7 INR 1.1 APTT 31.9 H Sodium 136 Potassium 4.1 Chloride 99 Carbon Dioxide 28.3 Anion Gap 9 BUN 14 Creatinine 0.97 Estimated GFR 86 L Random Glucose 97 Lactic Acid Calcium 9.5 Total Bilirubin 0.5 AST 25 ALT 30 Alkaline Phosphatase 110 Total Protein 8.4 H Albumin 3.4 Urine Color Urine Clarity Urine pH Ur Specific [place] Urine Protein Urine Glucose (UA) Urine Ketones Urine Occult Blood Urine Nitrate Urine Bilirubin Urine Urobilinogen Ur Leukocyte Esterase Urine RBC Urine WBC Urine Mucus Urine Opiates Screen Ur Barbiturates Screen Ur Amphetamines Screen U Benzodiazepines Scrn Urine Cocaine Screen U Cannabinoids Screen 12/08/17 12/08/17 12/08/17 15:38 17:06 17:06 WBC RBC Hgb Hct MCV MCH MCHC RDW Plt Count MPV Neut % (Auto) Lymph % (Auto) [place] % (Auto) Eos % (Auto) Baso % (Auto) Neut # (Auto) Lymph # (Auto) [place] # (Auto) Eos # (Auto) Baso # (Auto) WBC Differential Differential Comment PT INR APTT Sodium Potassium Chloride Carbon Dioxide Anion Gap BUN Creatinine Estimated GFR Random Glucose Lactic Acid 1.3 Calcium Total Bilirubin AST ALT Alkaline Phosphatase Total Protein Albumin Urine Color Yellow Urine Clarity Clear Urine pH 6.0 Ur Specific [place] 1.027 Urine Protein Negative Urine Glucose (UA) Negative Urine Ketones Negative Urine Occult Blood Negative Urine Nitrate Negative Urine Bilirubin Negative Urine Urobilinogen 2.0 H Ur Leukocyte Esterase Negative Urine RBC Less than 1 Urine WBC Less than 1 Urine Mucus Few H Urine Opiates Screen Pos H Ur Barbiturates Screen Pos H Ur Amphetamines Screen Neg U Benzodiazepines Scrn Neg Urine Cocaine Screen Pos H U Cannabinoids Screen Neg Microbiology 12/08/17 15:38 Blood - Line Aerobic Blood Culture - Preliminary No growth in 1 day 12/08/17 15:38 Blood - Line Anaerobic Blood Culture - Preliminary No growth in 1 day 12/08/17 15:30 Blood - Line Aerobic Blood Culture - Preliminary No growth in 1 day 12/08/17 15:30 Blood - Line Anaerobic Blood Culture - Preliminary No growth in 1 day - Imaging Impressions Soft Tissue Neck CT 12/08/17 14:53 CONCLUSION: 1. Significant swelling in the right lower neck and focal abscess and possibly multiple small lymph nodes surrounding it extending to right lower neck posteriorly. Assessment and Plan - Plan //abscess of the right neck with history of IV drug abuse. = Continue on broad-spectrum IV antibiotics due to life-threatening location of infection Await ENT consultation. Will need I+D with cultures. //Cocaine abuse. Cessation counseling again discussed. Discharge Planning: Pending incision and drainage, cultures. Likely at least 3 days
[2017-12-09] MEDS ORDERED: Sodium Chlor 0.9% Inj 250 ML ONE (18:29)
[2017-12-09] MEDS ORDERED: fentaNYL Citrate Inj 100 MCG/2 ML Ampul ONE (19:18)
[2017-12-10] MEDS ORDERED: Pharmacy Ordered Lab Info OTHER ONE (05:45)
--- NOTE | 2017-12-10 08:07 | MP ---
cc: Onesimo Thomas MD DATE OF OPERATION: 12/09/2017 SURGEON: Onesimo Thomas MD PREOPERATIVE DIAGNOSIS: Right neck abscess. POSTOPERATIVE DIAGNOSIS: Right neck abscess. PROCEDURE PERFORMED: Incision and drainage of right neck abscess. INDICATIONS: Ronnie Hong is a 42-year-old IV drug abuser who reports he had injected into the right side of his neck attempting to hit the anterior jugular vein. He states he missed and developed an infection in the deep neck in the right side in the supraclavicular area. He returned to the emergency room on the afternoon of the with this complaint. This has progressed despite treatment with IV Zosyn and vancomycin as well as Decadron. CAT scan shows a loculating abscess in the deep neck lateral to the sternocleidomastoid muscle. DESCRIPTION OF PROCEDURE: The patient was taken to OR #9 and placed in the supine position. Following induction of general anesthesia and intubation using a laryngeal mask apparatus, the patient was positioned for surgery of the right neck. He was prepped and draped for surgery. A 5 cm horizontal line was made over the most full area of the involvement in his right neck. This was then carried down sharply into the subcutaneous tissues and purulence was immediately encountered. This was evacuated and the wound was cultured. It was then opened further into the deep neck using a Chey clamp to break up loculations within the neck. I then irrigated with 300 mL of saline. The abscess cavity was then packed with approximately 20 inches of 1/4-inch iodoform gauze. A dry dressing was applied and the procedure was terminated. The patient was reversed from anesthesia and taken to recovery in good condition. There were no complications. Blood loss was 20 mL. Onesimo Thomas MD [facility]/TL , 07:51 AM , 08:05 AM
[2017-12-10] MEDS: Piperacil/Tazo 3.375 GM Premix 50 ML IV.SIG SCH ×2 (10:42→11:04)
[2017-12-10 10:48] LABS: Glomerular Filtration Rate Greater Than 89 mL/min (>89)
[2017-12-10 10:50] LABS: Vancomycin,Trough 7.3 mcg/mL (5.0-10.0)
--- NOTE | 2017-12-10 11:19 | P.DS ---
Date of admission: 12/08/17 17:31 Primary care physician: No Primary Care Physician Brief History from admission: HPI from the admitting physician: patient is a 42 y/o male, IV drug abuse, who presented to ER with swelling and pain to the right neck. he says that he tried to inject the IV drug last week and ' he missed'. after which he started to have pain and swelling of the right neck. he denies any fever,chills. pain was mild at the time of my evaluation. Update on day of DC: Patient is dressed and states and he is ready to go home. He is not staying. Per RN he was cleared by ENT. DS: Diagnosis - Discharge Diagnosis (1) Abscess of neck Status: Acute DS: Medications - Discharge Medications Prescriptions: sulfamethoxazole-trimethoprim [Bactrim DS] 1 tab PO Q12H #14 tab DS: Summary Hospital Course: 42 Y/O male IVDU admitted with abscess of the right neck. Patient tried to inject in the area. Patient was treated with broad spectrum antibiotics. He was seen by ENT and had I&D. He is discharged on Bactrim and was strongly advised to stop using illicit drugs. He was advised that he has cultures pending and may get called back to return to the Hospital. He was counseled on when to return to the Hospital. Cocaine abuse. Cessation again discussed. - Time Spent with Patient Total time spent providing and/or coordinating discharge services: Less than 30 minutes - Quality: VTE Deep Vein Thrombosis/Pulmonary Embolism Present on Admission: No Exam Vital signs: Vital Signs 12/09/17 12:00 12/09/17 16:00 12/09/17 17:40 Temperature 97.9 F 97.7 F 97.8 F Pulse Rate 67 57 L 62 Respiratory Rate 14 14 18 Blood Pressure 116/67 104/61 105/61 Pulse Oximetry 97 92 L 94 L 12/09/17 19:08 12/09/17 19:15 12/09/17 19:30 Temperature 97.5 F L Pulse Rate 61 56 L 52 L Respiratory Rate 14 14 14 Blood Pressure 104/56 L 111/57 L 107/55 L Pulse Oximetry 97 95 12/09/17 19:45 12/09/17 20:00 12/10/17 00:00 Temperature 97.1 F L 97.1 F L Pulse Rate 52 L 53 L 45 L Respiratory Rate 16 16 16 Blood Pressure 105/57 L 104/57 L 105/63 Pulse Oximetry 97 93 L 12/10/17 08:00 Temperature 97.3 F L Pulse Rate 55 L Respiratory Rate 14 Blood Pressure 129/70 Pulse Oximetry 98 Intake & Output 12/09/17 12/10/17 12/10/17 18:59 06:59 18:59 Intake Total 2562.5 / 2562.5 200 / 200 1312.5 / 1312.5 Output Total 10 / 10 Balance 2562.5 / 2562.5 190 / 190 1312.5 / 1312.5 Intake: IV 2562.5 / 2562.5 1312.5 / 1312.5 NS Inj 1,000 ML @ 125 mls/hr IV 1000 / 1000 1000 / 1000 .CONT .Q8H [facility] Rx#:[id number] Zosyn 3.375 GM Premix 50 ML @ 50 / 50 50 / 50 100 mls/hr IV.SIG Q6H [facility] Rx#: [id number] Vancomycin Inj 1,250 MG In NS 262.5 / 262.5 262.5 / 262.5 Inj 250 ML @ 250 mls/hr IV.SIG Q12H [facility] Rx#:[id number] Anesthesia Amount 200 / 200 Output: Estimated Blood Loss 10 10 Other: # Voids 3 Narrative: GENERAL: No acute distress SKIN: Right neck dressing intact. No surrounding cellulitis. HEAD: Normocephalic. EYES: No scleral icterus. No injection or drainage. NECK: Supple, trachea midline. No JVD or lymphadenopathy. CARDIOVASCULAR: Regular rate and rhythm without murmurs, gallops, or rubs. RESPIRATORY: Breath sounds equal bilaterally. No accessory muscle use. Results Procedures completed during hospitalization: Right neck abscess I&D Labs on day of discharge: Labs from last 24 hours 12/10/17 12/10/17 09:35 09:35 Creatinine 0.92 Estimated GFR Greater than 89 Vancomycin Trough Cancelled 7.3 Preliminary micro results at discharge 12/08/17 15:38 Aerobic Blood Culture - Preliminary Blood - Line No growth in 2 days Anaerobic Blood Culture - Preliminary No growth in 2 days 12/08/17 15:30 Aerobic Blood Culture - Preliminary Blood - Line No growth in 2 days Anaerobic Blood Culture - Preliminary No growth in 2 days - Impressions ITS Impressions Soft Tissue Neck CT 12/08/17 14:53 CONCLUSION: 1. Significant swelling in the right lower neck and focal abscess and possibly multiple small lymph nodes surrounding it extending to right lower neck posteriorly. Discharge Plan - Discharge Disposition Patient Disposition: 01 Discharge Home - Discharge Condition Condition: Stable - Discharge Order Discharge Orders: Discharge Order (Routine); Ordered 12/10/17 Ordered By: Radha Knapp - Physicians Team Primary Care Provider: Primary Care Physici,Janet Attending Provider: Radha Knapp Other Providers: Onesimo Thomas MD
== END 2017-12-10 11:29 | disposition home or self-care (01) ==
LOC: NEPE 10:49 → NEDA 10:49 → NEPFCDU 18:30 → N07 12-09 17:46
PROVIDERS: ADMIT Family Medicine; ATTEND Family Medicine